=== PATIENT | male | born 1940 | race Caucasian/White ===

== ENCOUNTER 2020-08-23 07:24 | Outpatient (REF) | payer MEDICARE, OTHER, SELFPAY ==
[2020-08-23 07:56] LABS: MANUAL DIFF FLAG NO
[2020-08-23 07:57] LABS: Basophils Percent Auto 0.8 % (0-2); Eosinophils Absolute Auto 0.3 X10*3/uL (0.0-0.4); Eosinophils Percent Auto 5.2 % (0-4); Hematocrit 36.6 % (42-52); Imm Gran Abs Auto 0.01 X10*3/uL (0.00-0.03); Imm Gran Pct Auto 0.2 % (0.0-0.4); Lymphocytes Absolute Auto 1.4 X10*3/uL (1.2-4.9); Lymphocytes Percent Auto 27.6 % (20-40); Mean Corpuscular HGB Conc 32.8 g/dl (31.0-36.0); Mean Corpuscular Hemoglobin 33.1 pg (27.0-33.0); Mean Corpuscular Volume 101.1 fL (80-98); Mean Platelet Volume 9.9 fL (9.4-12.4); Monocytes Absolute Auto 0.6 X10*3/uL (0.1-1.2); Monocytes Percent Auto 11.3 % (2-11); Neutrophils Absolute Auto 2.7 X10*3/uL (2.0-8.3); Neutrophils Percent Auto 54.9 % (45-73); Platelet Count 163 X10*3/uL (160-400); Red Blood Count 3.62 X10*6/uL (4.60-5.80); Red Cell Distribution Width 12.9 % (11.0-16.0)
[2020-08-23 08:30] LABS: Alanine Aminotransferase 22 U/L (0-40); Albumin Level 4.2 g/dL (3.5-5.0); Alkaline Phosphatase 36 U/L (39-117); Anion Gap 7 (12-20); Aspartate Amino Transferase 35 U/L (5-37); Bilirubin Total 1.1 mg/dL (0.0-1.0); Blood Urea Nitrogen 20 mg/dL (9-16); Calcium 8.9 mg/dL (8.4-10.2); Carbon Dioxide 32 mmol/L (22-29); Chloride 108 mmol/L (96-108); Cholesterol 105 mg/dL; Estimated Glomerular Filt Rate > 60; Glucose Random 97 mg/dL (60-115); HDL Cholesterol 47 mg/dL; LDL Cholesterol Calculated 50 mg/dl; Potassium 4.2 mmol/l (3.3-5.1); Sodium 143 mmol/L (135-145); Total Protein 6.4 g/dL (6.5-8.0); Triglycerides 40 mg/dL
[2020-08-23 08:44] LABS: Thyroid Stimulating Hormone 2.52 mIU/mL (0.32-4.0)
== END 2020-08-23 07:25 | disposition home or self-care (01) ==
LOC: HO.LAB 07:24
PROVIDERS: PCP Internal Medicine; Visit Provider Internal Medicine
DX: D64.9 Anemia, unspecified (principal); E78.00 Pure hypercholesterolemia, unspecified; I77.9 Disorder of arteries and arterioles, unspecified
CPT/HCPCS: 36415; 80053; 80061; 84443; 85025

== ENCOUNTER 2020-12-14 08:46 | Outpatient (REF) | payer MEDICARE, OTHER, SELFPAY ==
--- NOTE | 2020-12-14 10:46 | MHC.AU.P13 ---
Adult Audiological Evaluation Date of Visit: 12/14/20 Certified Physician Assistant Used: Not Applicable Reason for Appointment: Audiologic evaluation due to question of hearing loss. Jorje reports he often misses part of what another person says. Has particular difficulty understanding someone's name when being introduced. Does patient feel they have a hearing loss?: Yes If Yes, Which Ear?: Both Ears When Was Hearing Difficulty First Noticed?: 2-3 years ago Has hearing been tested previously?: No Hearing Handicap Inventory: HHIE SCORE: 16 Based on HHIE score, patient has: Mild to moderate perceived hearing handicap Ear History: History of Ear Wax Buildup: Both Ears History of occupational noise exposure?: No History: History: No Medical History: Medical History: Blood Disorder Cancer Head Injury Medical History: Concussion from head trauma in 1954. Jorje has no memory of the accident and for a few years after, had difficulty concentrating. Allergies: Penicillin, Amoxicillin, Tetracycline, Erythromycin Medication List: Finastride, Roshrastatin, Asprin, Trazadone, Restasis Otoscopy: Right Ear: Collapsing Ear Canal Left Ear: Collapsing Ear Canal Tympanometry: Tympanometry performed due to: To assess integrity of the middle ear system Right Ear: Non-compliant Middle Ear System (Type B) Left Ear: Normal Middle Ear System (Type A) Otoacoustic Emissions Right Ear Results: Not performed at today's visit. Left Ear Results: Not performed at today's visit. Hearing Evaluation: Transducer(s) Used: Insert Earphones Bone Conduction Method: Conventional Audiometry Stimuli Used: Pure Tones Right Ear: Description of Hearing: Borderline normal hearing threshold at 250 and 500 Hz, dropping to a severe high frequency mixed hearing loss Left Ear: Description of Hearing: Borderline normal hearing threshold at 250 to 1000 Hz, dropping to a severe high frequency mixed hearing loss. The high frequency thresholds for the left ear are poorer compared to the right. Speech Recognition Threshold (SRT): Method Used: Monitored Live Voice Stimuli Used: Spondee Words Right Ear: 20 dB HL Left Ear: 20 dB HL Word Discrimination: Method: Recorded Lists Word Lists Used: NU-6 Right Ear: 100% at 70 dB HL Left Ear: 100% at 70 dB HL Most Comfortable Level (MCL): Right Ear: 70 dB HL Left Ear: 70 dB HL QuickSIN: Unaided Binaural Quick SIN Test: 3 dB SNR Loss suggesting Jorje experiences a mild degree of difficulty understanding speech with increasing levels of background noise. Comparison: Compared to the most recent evaluation: N/A Interpretation of Results: Question if the conductive components noted for both ears and the right ear middle ear dysfunction may be related to the significantly collapsing ear canals. Recommendations: Audiological re-evaluation in one year. Trial with amplification is recommended. Medical clearance from a physician is required before fitting. Referral to Ear, Nose, and Throat to address middle ear dysfunction. - Discussed and provided a handout regarding communication strategies to use to improve speech understanding as much as possible - Discussed trial period with binaural hearing aids and Jorje will consider. If he would like to try hearing aids from this office, he is advised to schedule a Hearing Aid Evaluation appointment prior to 06/13/2021. Audiologic re-evaluation is required if he wishes to pursue amplification after this date. Diagnosis: Primary Diagnosis: H90.6 Mixed Hearing Loss, Bilateral Secondary Diagnosis: H69.91 Unspecified Eustachian Tube Dysfunction, Right Ear Services Performed: Comprehensive Audiological Evaluation (CPT 10242) Tympanometry (CPT 39000) Signature: Provider: Kana Bell, CCC-A
== END 2020-12-14 08:47 | disposition home or self-care (01) ==
LOC: HO.SH 08:46
PROVIDERS: Visit Provider Registered Nurse
DX: H90.6 Mixed conductive and sensorineural hearing loss, bilateral (principal); H69.91 Unspecified Eustachian tube disorder, right ear
CPT/HCPCS: 92557; 92567

== ENCOUNTER 2021-10-02 08:34 | Outpatient (REF) | payer MEDICARE, OTHER, SELFPAY ==
[2021-10-02 08:53] LABS: MANUAL DIFF FLAG NO
[2021-10-02 09:03] LABS: Basophils Percent Auto 0.8 % (0-2); Eosinophils Absolute Auto 0.3 X10*3/uL (0.0-0.4); Eosinophils Percent Auto 5.2 % (0-4); Hematocrit 35.1 % (42.0-52.0); Hemoglobin 11.5 g/dl (14.0-18.0); Lymphocytes Absolute Auto 1.4 X10*3/uL (1.2-4.9); Lymphocytes Percent Auto 28.3 % (20-40); Mean Corpuscular HGB Conc 32.8 g/dl (31.0-36.0); Mean Corpuscular Volume 100.9 fL (80.0-98.0); Mean Platelet Volume 10.4 fL (9.4-12.4); Monocytes Absolute Auto 0.7 X10*3/uL (0.1-1.2); Monocytes Percent Auto 13.5 % (2-11); Neutrophils Absolute Auto 2.5 x10*3/uL (2.0-8.3); Neutrophils Percent Auto 52.2 % (45-73); Platelet Count 124 X10*3/uL (160-400); Red Blood Count 3.48 X10*6/uL (4.60-5.80); Red Cell Distribution Width 13.2 % (11.0-16.0); White Blood Count 4.8 X10*3/uL (4.8-10.8)
[2021-10-02 09:24] LABS: Alanine Aminotransferase 18 U/L (0-40); Albumin Level 4.2 g/dL (3.5-5.0); Alkaline Phosphatase 33 U/L (39-117); Anion Gap 10 (12-20); Aspartate Amino Transferase 27 U/L (5-37); Bilirubin Total 1.3 mg/dL (0.0-1.0); Blood Urea Nitrogen 23 mg/dL (9-16); Calcium 9.7 mg/dL (8.4-10.2); Carbon Dioxide 28 mmol/L (22-29); Chloride 107 mmol/L (96-108); Cholesterol 105 mg/dL; Estimated Glomerular Filt Rate > 60; Glucose Random 94 mg/dL (60-115); HDL Cholesterol 46 mg/dL; LDL Cholesterol Calculated 52 mg/dl; Potassium 4.3 mmol/L (3.3-5.1); Sodium 141 mmol/L (135-145); Total Protein 6.5 g/dL (6.5-8.0); Triglycerides 39 mg/dL
[2021-10-02 09:45] LABS: Free T4 (Free Thyroxine) 1.06 ng/dL (0.71-1.85); Thyroid Stimulating Hormone 2.27 uIU/mL (0.32-4.0)
== END 2021-10-02 08:35 | disposition home or self-care (01) ==
LOC: HO.LAB 08:34
PROVIDERS: PCP Internal Medicine; Visit Provider Internal Medicine
DX: E78.00 Pure hypercholesterolemia, unspecified (principal); R42 Dizziness and giddiness; D64.9 Anemia, unspecified
CPT/HCPCS: 36415; 80053; 80061; 84439; 84443; 85025

== ENCOUNTER 2022-11-30 16:51 | Outpatient (REF) | payer MEDICARE, OTHER, SELFPAY ==
--- NOTE | ~2022-11-30 | XR_ITS ---
EXAMINATION: XR FOOT, RIGHT CLINICAL INFORMATION: Foot pain COMPARISON: None TECHNIQUE: AP, lateral, and oblique views of the right foot. FINDINGS: No acute fracture or dislocation. Moderate first MTP joint space narrowing with subchondral sclerosis and osteophyte formation consistent with osteoarthritis. Joint spaces otherwise maintained throughout the foot. Normal alignment at the Lisfranc joint. No ankle joint effusion. XR/XR foot RT 2V IMPRESSION: 1. No acute osseous injury. 2. Moderate first MTP joint osteoarthritis.
== END 2022-11-30 16:52 | disposition home or self-care (01) ==
LOC: HO.HMGCX 16:51
PROVIDERS: PCP Internal Medicine; Visit Provider Nurse Practitioner Family
DX: M79.671 Pain in right foot (principal); S90.121D Contusion of right lesser toe(s) without damage to nail, subsequent encounter
CPT/HCPCS: 73620

== ENCOUNTER 2024-03-04 06:08 | Outpatient (REF) | payer MEDICARE, OTHER, SELFPAY ==
--- NOTE | ~2024-03-04 | XR_ITS ---
EXAMINATION: XR SHOULDER, RIGHT CLINICAL INFORMATION: Acute right shoulder pain COMPARISON: None available. TECHNIQUE: Three views of the right shoulder. FINDINGS: Mild glenohumeral and acromioclavicular osteoarthritis. Small subacromial spur. No fracture or malalignment. XR/XR shoulder RT min 2V IMPRESSION: Mild glenohumeral and acromioclavicular osteoarthritis. Small subacromial spur.
[2024-03-04 06:33] LABS: MANUAL DIFF FLAG NO
[2024-03-04 07:59] LABS: Basophils Absolute Auto 0.1 X10*3/uL (0.0-0.2); Eosinophils Absolute Auto 0.3 X10*3/uL (0.0-0.4); Eosinophils Percent Auto 4.9 % (0-4); Hematocrit 32.2 % (42.0-52.0); Hemoglobin 10.8 g/dl (14.0-18.0); Imm Gran Abs Auto 0.01 X10*3/uL (0.00-0.03); Imm Gran Pct Auto 0.2 % (0.0-0.4); Lymphocytes Absolute Auto 1.4 X10*3/uL (1.2-4.9); Lymphocytes Percent Auto 28.3 % (20-40); Mean Corpuscular HGB Conc 33.5 g/dl (31.0-36.0); Mean Corpuscular Hemoglobin 34.3 pg (27.0-33.0); Mean Corpuscular Volume 102.2 fL (80.0-98.0); Mean Platelet Volume 10.7 fL (9.4-12.4); Monocytes Absolute Auto 0.7 X10*3/uL (0.1-1.2); Monocytes Percent Auto 13.6 % (2-11); Neutrophils Absolute Auto 2.6 x10*3/uL (2.0-8.3); Platelet Count 162 X10*3/uL (160-400); Red Blood Count 3.15 X10*6/uL (4.60-5.80); Red Cell Distribution Width 13.7 % (11.0-16.0); White Blood Count 5.1 X10*3/uL (4.8-10.8)
[2024-03-04 08:04] LABS: Estimated Average Glucose 108 mg/dL; Hemoglobin A1c % 5.4 % (<6.0)
[2024-03-04 08:48] LABS: Alanine Aminotransferase 20 U/L (0-40); Albumin Level 4.1 g/dL (3.5-5.0); Alkaline Phosphatase 35 U/L (39-117); Anion Gap 12 (12-20); Aspartate Amino Transferase 32 U/L (5-37); Bilirubin Total 0.9 mg/dL (0.0-1.0); Blood Urea Nitrogen 28 mg/dL (9-16); Calcium 9.5 mg/dL (8.4-10.2); Carbon Dioxide 28 mmol/L (22-29); Chloride 108 mmol/L (96-108); Cholesterol 102 mg/dL (<200); Estimated Glomerular Filt Rate > 60; Glucose Random 90 mg/dL (60-115); HDL Cholesterol 47 mg/dL (>40); LDL Cholesterol Calculated 48 mg/dL (<100); Potassium 4.2 mmol/L (3.3-5.1); Sodium 144 mmol/L (135-145); Total Protein 6.7 g/dL (6.5-8.0); Triglycerides 38 mg/dL (<150)
[2024-03-04 09:06] LABS: Thyroid Stimulating Hormone 2.56 uIU/mL (0.32-4.0)
[2024-03-04 09:07] LABS: Vitamin B12 438 pg/mL (200-900)
== END 2024-03-04 06:09 | disposition home or self-care (01) ==
LOC: HO.XRAY 06:08
PROVIDERS: PCP Internal Medicine; Visit Provider Internal Medicine
DX: I10 Essential (primary) hypertension (principal); E53.8 Deficiency of other specified B group vitamins; R73.01 Impaired fasting glucose; E55.9 Vitamin D deficiency, unspecified; M25.511 Pain in right shoulder; W19.XXXA Unspecified fall, initial encounter
CPT/HCPCS: 36415; 73030; 80053; 80061; 82306; 82607; 83036; 84443; 85025

== ENCOUNTER 2024-04-23 19:38 | Emergency (ER) | payer MEDICARE, OTHER, SELFPAY ==
--- NOTE | ~2024-04-23 | CT_ITS ---
EXAMINATION: CT FEMUR WITH CONTRAST, RIGHT CLINICAL INFORMATION: Right femur trauma. Bruise to the right anterior thigh. COMPARISON: None available. TECHNIQUE: Multidetector volumetric CT imaging was obtained through the right femur, following intravenous administration of 85 mL Omnipaque 350. Postprocessing was performed at a dedicated workstation. Multiplanar reformatted images were submitted. This CT examination was performed using dose optimization techniques as appropriate, variously including the following: *Automated exposure control *Adjustment of mA and/or kV according to patient size (this includes techniques or standardized protocols for targeted exams where dose is matched to indication/reason for exam; i.e. extremities or head) *Use of iterative reconstruction technique DLP: 367 mGy-cm FINDINGS: Bilateral total hip arthroplasty hardware is in place. There are 2 acetabular fixation screws on the right. Significant metallic streaking artifact from the surgical hardware limits the evaluation of the surrounding structures. Findings suggestive of elongated hematoma is noted over the [id number] thigh anteriorly in the deep subcutaneous tissue, measuring approximately 17.5 cm in length and 2.3 cm seen maximum AP dimension approximately 7 cm in transverse dimension. Small hyperdense focus is noted within the hematoma in the lower thigh (series 5 image 118). There are faint patchy amorphous and somewhat curvilinear areas of hyperdensities within the anterior musculature in the mid thigh (series 5 images 84 through 98 of 174). Subcutaneous fat reticulation is noted anterolaterally in the mid and distal thigh. There is no evidence of underlying acute osseous fracture. No evidence of abnormal periprosthetic lucency to suggest loosening. Hip joint and knee joints are intact. Heterotopic ossification is noted in the region of femoral neck and superior region of femoral neck. Symphysis pubis is intact. Scattered calcific atherosclerosis of the femoral and popliteal arteries. There is normal enhancement of the femoral and popliteal arteries. Trace suprapatellar joint effusion. No soft tissue air or unexpected radiopaque foreign body. CT/CT femur RT w IV con IMPRESSION: Large hematoma in the subcutaneous tissue of the [id number]-rw-[id number] thigh anteriorly. No evidence of underlying acute osseous fracture. Evaluation of the [id number] femur is somewhat limited due to presence of significant metallic streaking artifacts from the total hip arthroplasty hardware. No evidence of hardware loosening. Areas of hyperdensities in the hematoma as well as in the anterior musculature as detailed above are nonspecific, possibility of contrast extravasation in the anterior musculature cannot be completely excluded. No evidence of focal abscess collection.
--- NOTE | 2024-04-23 19:41 | ED_ITS ---
HPI - General Adult General Chief complaint: Fall Stated complaint: fall today @1500 Time Seen by Provider: 04/23/24 19:41 History of Present Illness ED Provider: Cheko RANDALL narrative: The patient is an 83-year-old male who is generally functional and in reasonably good health. He lives at home with his . Today he was at a golf course. After playing around of golf he tripped going up a set of stairs and landed on his hands and his legs. He struck the distal aspect of his anterior right thigh quite high hard against a riser of this stair case. He sustained a slight skin tear and had some pain initially. Nevertheless he was able to get someone to help him into his car. He then drove 4 miles home. He was able to get out of his car when he got home but it was difficult. The injury occurred at 3:30 PM this afternoon. By 7 PM he had developed significant bruising and had a great deal of difficulty moving around because of pain in the leg when he moved. At that point he and his decided he should come to the hospital. They called an ambulance and he was brought here. Says he does not have significant pain at rest. However movement of the leg, particularly when he tries to bear weight on the leg is severe. The patient did not hit his head or injure his neck. He did not hit his chest or abdomen. Other than the pain in his right thigh he has not complaining of any other injury or symptom. The patient is on a baby aspirin daily. He is not on any anticoagulation. The patient has a history of bilateral hip replacements. This was done more than 10 years ago Related Data Home Medications ?Medication ?Instructions ?Recorded ?Confirmed celecoxib 200 mg capsule mg PO BID 11/30/22 11/30/22 cyclosporine 0.05 % eye drops in a drp ophthalmic (eye) 11/30/22 11/30/22 dropperette (Restasis) finasteride 5 mg tablet 5 mg PO DAILY 11/30/22 11/30/22 metoprolol tartrate 25 mg tablet 12.5 mg PO BID 11/30/22 11/30/22 rosuvastatin 10 mg tablet 10 mg PO DAILY 11/30/22 11/30/22 trazodone 50 mg tablet 50 mg PO BEDTIME 11/30/22 11/30/22 Allergies Allergy/AdvReac Type Severity Reaction Status Date / Time erythromycin base Allergy Unknown HIVES Unverified 04/23/24 19:48 [From ERYTHROCIN] penicillin G Allergy Unknown Rash Verified 11/30/22 16:28 penicillin V Allergy Unknown hives Verified 04/23/24 19:48 Penicillins [PENICILLINS] Allergy Unknown RASH HIVES Unverified 04/23/24 19:48 tetracycline [TETRACYCLINE] Allergy Unknown HIVES Unverified 04/23/24 19:48 Erythromycin Allergy Unknown hives Uncoded 04/23/24 19:48 Review of Systems 2 Review of Systems: Yes all other systems are reviewed and are negative [facility] Social History Social History Smoked in Last 30 Days: No Advance Directives: No Advance Directives Information Provided: No Do you have a plan to hurt others: No Plan Physical Exam ED Vital Signs: Vital Signs - 24 hr 04/23/24 19:52 04/23/24 20:17 04/23/24 22:07 Temperature 97.9 F 97.9 F 98.2 F Pulse Rate 65 61 63 Respiratory Rate 16 15 16 Blood Pressure 144/45 H 153/54 H 144/62 H Pulse Oximetry 100 97 97 Oxygen Delivery Method Room Air Room Air Room Air 04/24/24 00:14 04/24/24 02:25 Temperature 98.2 F Pulse Rate 65 61 Respiratory Rate 17 16 Blood Pressure 160/53 H Pulse Oximetry 97 Oxygen Delivery Method Room Air BMI result Body Mass Index 24.2 Const Other: The patient is an 83-year-old man who was awake and alert. He does not appear obviously acutely uncomfortable or in obvious acute distress. HENMT Other: No signs of trauma to the head or the face. Face is symmetrical. Mucous membranes moist. Eyes Other: Pupils are round equal, conjunctivae are clear, extraocular movements intact Neck Other: No neck tenderness. Moving his neck easily. No JVD. Resp Effort & Inspection: normal respiratory effort Auscultation: clear to auscultation bilaterally Cardio Rate: regular rate Rhythm: regular rhythm Heart sounds: S1 normal heart sound present and S2 normal heart sound present GI Other: Abdomen is soft and nontender Skin Other: There is soft tissue swelling to the lower anterior thigh. There is a skin tear about 4 cm in length overlying the area of swelling. The swelling is tender but not fluctuant. Neuro Other: The patient is awake and alert, oriented and appropriate. Cranial nerves are grossly intact. He moves his arms normally. Moves his left leg normally. He has reduced use of his right leg because of pain at the thigh. He has intact sensation on both sides of the right thigh, both sides of the right lower leg, and of the right foot. He seems to be neurologically intact. Extrem Other: The patient has significant soft tissue swelling and bruising to the distal right anterior thigh. This is associated with a small skin tear. Patient is able to keep the leg extended at the knee although it is painful. Patient has a lot of tenderness in the region of the soft tissue swelling but the proximal thigh does not have significant tenderness. There is some pitting edema to both lower legs. This is more pronounced on the right lower leg than the left. Patient and his both agree that this is chronic. Medications Administered Discontinued Medications Generic Name Dose Route Start Last Admin Trade Name Freq PRN Reason Stop Dose Admin Acetaminophen 975 mg 04/23/24 22:50 04/23/24 23:19 Acetaminophen 325 Mg Tablet PO 04/23/24 22:51 975 mg ONCE ONE Administration Iohexol 85 ml 04/23/24 20:44 04/23/24 20:45 Iohexol 350 Mg/Ml 100 Ml Infus..Btl IV 04/23/24 20:45 85 ml ONCE ONE Administration Lidocaine HCl 10 ml 04/24/24 00:08 04/24/24 00:17 Lidocaine Hcl 2 % Urojet 10 Ml Jel.Pf.Vern TOPICAL 04/24/24 00:09 Not Given ONCE ONE Medical Decision Making Medical Decision Making [facility] Narrative: The patient is an 83-year-old man who is generally in fairly good health. He takes a baby aspirin daily. No anticoagulant medications. He sustained an injury to his right distal anterior thigh when he tripped going up a set of stairs. I believe he struck the lower anterior thigh against the edge of a step. This occurred approximately 4 hours prior to arrival. He was able to drive himself home immediately after the accident what had that ultimately he came here by ambulance. He does not seem to have sustained any other significant injuries fall. He has a small skin tear to the skin of the distal anterior thigh. The patient's description of the episode did not seem suggestive of a likely fracture. He seemed to have developed a significant hematoma of the lower anterior thigh. Labs were done that showed a hemoglobin of 9.2. This was a drop from 10.8 on March 04, approximately 1.5 months ago. Additionally an initial CPK was elevated at 513. Labs were repeated 3 hours later. The patient's repeat hemoglobin was stable at 9.5. Repeat CPK was 472. A CT of the femur with IV contrast was done. This shows a large hematoma in the subcutaneous tissue of the mid to distal thigh anteriorly that was described as being 17.5 cm in length, 7 cm across, and 2.3 cm in depth. Areas of hyperdensities were seen in the hematoma as well as in the anterior musculature which were described as being ?nonspecific, possibility of contrast extravasation in the anterior musculature can not be completely excluded. ? I spoke with the radiologist who read the study. It was my impression that study did not highly suggest that there was any role for any kind of possible interventional radiology procedure. Clinically, although the patient obviously had a very large hematoma, my suspicion for an ongoing acute problem is not high. Patient does not seem to be having any pain except with movement or manipulation of the leg. He seems comfortable at rest and able to sleep. I think this would argue against both a compartment syndrome and also against ongoing bleeding of any significance. The patient was treated with elevation of the leg and application of a large ice bag over his thigh. He has been observed for many hours. During this time he had labs that showed no drop in his hemoglobin and no rise in his CPK. Additionally he did not seem to be exhibiting any significant new discomfort and in fact seemed to be sleeping most of the time. My impression therefore is that he has a significant hematoma but I do not think he has a compartment syndrome or significant ongoing bleeding in a muscular compartment. I therefore do not think there is a clear indication for hospitalization Since the patient is having a great deal of difficulty moving his leg I think he can not be discharged. Placed in physician observation for evaluation by physical therapy and case management. Lab Data 04/23/24 23:23 04/23/24 20:08 Labs: Lab Results 04/23/24 04/23/24 Range/Units 20:08 23:23 WBC 7.4 9.0 (4.8-10.8) X10*3/uL RBC 2.63 L 2.73 L (4.60-5.80) X10*6/uL Hgb 9.2 L 9.5 L (14.0-18.0) g/dl Hct 26.2 L 27.1 L (42.0-52.0) % MCV 99.6 H 99.3 H (80.0-98.0) fL MCH 35.0 H 34.8 H (27.0-33.0) pg MCHC 35.1 35.1 (31.0-36.0) g/dl RDW 13.6 13.6 (11.0-16.0) % Plt Count 130 L 132 L (160-400) X10*3/uL MPV 10.0 10.5 (9.4-12.4) fL Immature Gran % (Auto) 0.4 (0.0-0.4) % Neut % (Auto) 77.3 H (45-73) % Lymph % (Auto) 12.9 L (20-40) % Dade % (Auto) 7.8 (2-11) % Eos % (Auto) 1.2 (0-4) % Baso % (Auto) 0.4 (0-2) % Lymph # (Auto) 1.0 L (1.2-4.9) X10*3/uL Dade # (Auto) 0.6 (0.1-1.2) X10*3/uL Eos # (Auto) 0.1 (0.0-0.4) X10*3/uL Baso # (Auto) 0.0 (0.0-0.2) X10*3/uL Abs Immat Gran (auto) 0.03 (0.00-0.03) X10*3/uL Absolute Neuts (auto) 5.7 (2.0-8.3) x10*3/uL Absolute Nucleated RBC 0.000 0.000 (0.0-0.012) X10*3/uL Nucleated RBC % (auto) 0.0 0.0 (0.0-0.2) /100WBC Sodium 140 (135-145) mmol/L Potassium 3.9 (3.3-5.1) mmol/L Chloride 107 (96-108) mmol/L Carbon Dioxide 25 (22-29) mmol/L Anion Gap 12 (12-20) BUN 30 H (9-16) mg/dL Creatinine 1.01 (0.5-1.4) mg/dL Estim Creat Clear Calc 56.2 Estimated GFR > 60 Random Glucose 126 H (60-115) mg/dL Calcium 9.5 (8.4-10.2) mg/dL Magnesium 2.1 (1.6-2.6) mg/dL Total Bilirubin 0.9 (0.0-1.0) mg/dL Direct Bilirubin 0.4 (0.0-0.5) mg/dL AST 35 (5-37) U/L ALT 20 (0-40) U/L Alkaline Phosphatase 34 L (39-117) U/L Total Creatine Kinase 513 H 472 H (38-174) U/L Total Protein 6.2 L (6.5-8.0) g/dL Albumin 4.0 (3.5-5.0) g/dL Ethyl Alcohol < 10 mg/dL Blood Type A Positive Antibody Screen NEGATIVE Discharge Plan Discharge Clinical Impression: Traumatic hematoma of right thigh Patient Disposition: Still a Patient Prescriptions: No Action celecoxib 200 mg capsule PO BID rosuvastatin 10 mg tablet 10 mg PO DAILY cyclosporine [Restasis] 0.05 % dropperette ophthalmic (eye) finasteride 5 mg tablet 5 mg PO DAILY metoprolol tartrate 25 mg tablet 12.5 mg PO BID trazodone 50 mg tablet 50 mg PO BEDTIME Print Language: [place]
[2024-04-23 19:45] VITALS: BP 150/70; PULSE 60; O2SAT 99; BMI 24.2
[2024-04-23 19:52] VITALS: BP 144/45; PULSE 65; RESP 16; TEMP 36.6; O2SAT 100
--- NOTE | 2024-04-23 20:01 | ECG_ITS ---
Test Reason : FALL Blood Pressure : / mmHG Vent. Rate : 063 BPM Atrial Rate : 063 BPM P-R Int : 168 ms QRS Dur : 076 ms QT Int : 390 ms P-R-T Axes : 088 -20 065 degrees QTc Int : 399 ms Normal sinus rhythm Normal ECG When compared with ECG of 05-OCT-2005 14:48, No significant change was found Referred By: Romero Still Electronically Signed By:CHAD LA
[2024-04-23 20:12] LABS: MANUAL DIFF FLAG NO
[2024-04-23 20:13] LABS: Basophils Percent Auto 0.4 % (0-2); Eosinophils Absolute Auto 0.1 X10*3/uL (0.0-0.4); Eosinophils Percent Auto 1.2 % (0-4); Hematocrit 26.2 % (42.0-52.0); Hemoglobin 9.2 g/dl (14.0-18.0); Imm Gran Abs Auto 0.03 X10*3/uL (0.00-0.03); Imm Gran Pct Auto 0.4 % (0.0-0.4); Lymphocytes Percent Auto 12.9 % (20-40); Mean Corpuscular HGB Conc 35.1 g/dl (31.0-36.0); Mean Corpuscular Volume 99.6 fL (80.0-98.0); Monocytes Absolute Auto 0.6 X10*3/uL (0.1-1.2); Monocytes Percent Auto 7.8 % (2-11); Neutrophils Absolute Auto 5.7 x10*3/uL (2.0-8.3); Neutrophils Percent Auto 77.3 % (45-73); Platelet Count 130 X10*3/uL (160-400); Red Blood Count 2.63 X10*6/uL (4.60-5.80); Red Cell Distribution Width 13.6 % (11.0-16.0); White Blood Count 7.4 X10*3/uL (4.8-10.8)
[2024-04-23 20:17] VITALS: BP 153/54; PULSE 61; RESP 15; TEMP 36.6; O2SAT 97
[2024-04-23 20:33] LABS: Alanine Aminotransferase 20 U/L (0-40); Alkaline Phosphatase 34 U/L (39-117); Anion Gap 12 (12-20); Aspartate Amino Transferase 35 U/L (5-37); Bilirubin Direct 0.4 mg/dL (0.0-0.5); Bilirubin Total 0.9 mg/dL (0.0-1.0); Blood Urea Nitrogen 30 mg/dL (9-16); Calcium 9.5 mg/dL (8.4-10.2); Carbon Dioxide 25 mmol/L (22-29); Chloride 107 mmol/L (96-108); Creatinine Clr Calc Pharmacy 56.2; Estimated Glomerular Filt Rate > 60; Ethanol < 10 mg/dL; Glucose Random 126 mg/dL (60-115); Magnesium 2.1 mg/dL (1.6-2.6); Potassium 3.9 mmol/L (3.3-5.1); Sodium 140 mmol/L (135-145); Total Protein 6.2 g/dL (6.5-8.0)
[2024-04-23] MEDS: iohexoL 350 MG/ML 100 ML INFUS..BTL 85 ML IV (20:45)
--- NOTE | 2024-04-23 21:22 | PC.NURSE ---
pt rates pain at 8-10 however does not want pain medication at this time when asked
[2024-04-23 22:07] VITALS: BP 144/62; PULSE 63; RESP 16; TEMP 36.8; O2SAT 97
[2024-04-23] MEDS: Acetaminophen 325 MG TABLET 975 MG PO (23:19)
[2024-04-23 23:29] LABS: Hematocrit 27.1 % (42.0-52.0); Hemoglobin 9.5 g/dl (14.0-18.0); Mean Corpuscular HGB Conc 35.1 g/dl (31.0-36.0); Mean Corpuscular Hemoglobin 34.8 pg (27.0-33.0); Mean Corpuscular Volume 99.3 fL (80.0-98.0); Mean Platelet Volume 10.5 fL (9.4-12.4); Platelet Count 132 X10*3/uL (160-400); Red Blood Count 2.73 X10*6/uL (4.60-5.80); Red Cell Distribution Width 13.6 % (11.0-16.0)
--- NOTE | 2024-04-24 00:12 | PC.NURSE ---
pt output 600ml via urinal. Bladder scan revealed over 500ml.
[2024-04-24 00:14] VITALS: BP 160/53; PULSE 65; RESP 17; TEMP 36.8; O2SAT 97
--- NOTE | 2024-04-24 00:16 | PC.NURSE ---
due to pt voided naturally, provider stated that he does not need a ulloa at this time
--- NOTE | 2024-04-24 00:35 | MHC.EDTECH ---
This tech took over care of patient at 2340,hourly rounds and vitals completed,patient was changed into hospital attire,belongings list completed, took home every thing except eye glasses with case there at bedside,patient is resting comfortably call chaidez in reach
[2024-04-24 02:25] VITALS: PULSE 61; RESP 16
--- NOTE | 2024-04-24 02:45 | MHC.EDTECH ---
Patient urinated 300MLS of clear yellow urine in urinal,patient is resting comfortably,pillows placed under leg fro comfort,call chaidez in reach
--- NOTE | 2024-04-24 03:07 | PC.NURSE ---
med rec complete from provider form
[2024-04-24 04:00] VITALS: BP 150/61; PULSE 59; RESP 18; TEMP 36.9; O2SAT 97
[2024-04-24] MEDS: Lidocaine HCl 1 % MPF 5 ML VIAL INFILTRATI (04:16)
--- NOTE | 2024-04-24 04:23 | MHC.EDTECH ---
Ambulated pt per providers request,patient was steady needed a 2 assist due to pain,pt refused pain meds,RN at bedside with this tech
[2024-04-24] MEDS: Acetaminophen 325 MG TABLET 650 MG PO (06:22)
[2024-04-24 07:37] VITALS: BP 150/61; PULSE 59; O2SAT 97
[2024-04-24] MEDS: Finasteride 5 MG TABLET PO (09:23)
[2024-04-24] MEDS: Metoprolol Tartrate 12.5 MG HALFTAB PO (09:24)
[2024-04-24] MEDS: Atorvastatin Calcium 40 MG TABLET PO (09:24)
[2024-04-24] MEDS: Aspirin Enteric Coated 81 MG TABLET.DR PO (09:24)
[2024-04-24 10:09] LABS: COVID-19 Test Negative (Negative); IDNOW Serial# 152EDE1D
--- NOTE | 2024-04-24 12:06 | MHC.CM.ED ---
Received case management consult from Dr Still. Patient came to the ER due to a fall. Physical therapy eval completed. Rehab is recommended. Met with patient and , Fabiana, in regards to discharge planning. Patient lives with Fabiana, ambulates independently and had no services prior to coming to the ER. PCP verified. Copy of HCP obtained from PCP's office. Patient has not been inpatient in any facility in the past 30 days. Referral made to all 3 acute rehab facilities. [facility] is able to offer a bed. Patient accepts. [facility] MAYS booked for 3pm. Med [facility] with chart. Patient, Graham Jung RN and Maliha LOBATO aware. Continue to monitor for d/c needs.
[2024-04-24 13:57] VITALS: BP 146/51; PULSE 54; RESP 16; O2SAT 100
== END 2024-04-24 14:20 ==
PROVIDERS: Physician Assistant Medical; Emergency Provider Emergency Medicine; PCP Internal Medicine
DX: S70.11XA Contusion of right thigh, initial encounter (principal); R26.2 Difficulty in walking, not elsewhere classified; M79.604 Pain in right leg; W01.10XA Fall on same level from slipping, tripping and stumbling with subsequent striking against unspecified object, initial encounter; Y93.53 Activity, golf; Y92.89 Other specified places as the place of occurrence of the external cause; Y99.8 Other external cause status; Z11.52 Encounter for screening for COVID-19; Z79.899 Other long term (current) drug therapy; Z51.81 Encounter for therapeutic drug level monitoring
CPT/HCPCS: 36415; 73701; 80048; 80076; 80307; 82550; 83735; 85025; 85027; 86850; 86900; 86901; 87635; 93005; 97162; 99285; Q9967

== ENCOUNTER → 2024-04-23 20:01 | Outpatient (BNV) | payer MEDICARE, OTHER, SELFPAY | PROVIDERS: Emergency Provider Emergency Medicine; PCP Internal Medicine; Visit Provider Internal Medicine | DX: R55 Syncope and collapse (principal) | CPT/HCPCS: 93010 ==

== ENCOUNTER 2025-07-06 07:51 | Outpatient (REF) | payer MEDICARE, OTHER, SELFPAY ==
--- NOTE | ~2025-07-06 | MR_ITS ---
EXAMINATION: MR BRAIN WITHOUT CONTRAST CLINICAL INFORMATION: Repeated falls, ataxia, dizziness; 84-year-old male. COMPARISON: None available. TECHNIQUE: MRI of the brain was obtained using routine sequences without contrast. Examination performed on 1.5 Lety Siemens high-field unit. FINDINGS: There is no diffusion restriction. There is no intracranial hemorrhage, acute infarction, mass effect, or edema. Ventricles, sulci, and cisterns are mildly diffusely prominent, in keeping with age-related cerebral and cerebellar volume loss. No shift of midline. No abnormal hemosiderin deposition is identified. There are mild to moderate scattered punctate and mildly confluent foci of white matter T2 hyperintensity in the periventricular, subcortical, and hemispheric deep white matter. These foci are nonspecific but statistically most likely relate to small vessel ischemic changes. Midline structures appear normally formed. There is diffuse thinning of the corpus callosum. The pituitary gland appears normal. Posterior fossa structures appear normal. Cerebellar tonsils are appropriately located. Major flow voids are preserved within the skull base. The globes and orbital contents demonstrate no abnormalities. There are bilateral lens replacements. Paranasal sinuses are clear bilaterally. The mastoids and tympanic cavities are normally aerated. Extracranial soft tissues demonstrate no abnormalities. No suspicious bone marrow changes are evident. Atlantoaxial joint demonstrates moderate degenerative changes with mild to moderate posterior pannus formation. There is hardware in C3. MR/MR head/brain wo con IMPRESSION: 1. No evidence of intracranial hemorrhage, acute infarction, mass effect, or edema. 2. Age-related cerebral and cerebellar volume loss, and mild to moderate changes of small vessel ischemia. Electronically signed by: Immanuel Chavez MD 07/06/2025 09:00 AM EDT
--- OUTSIDE RECORDS SUMMARY | 2025-07-06 07:56 | XMS_ITS | Encounter Summary ---
Author Organization [facility] Address [address] [facility] [address] [place] [address] Phone Care Team Providers Care Aircraft Pneudraulic Systems Mechanic Name Role Phone Abran Lacey MD Unavailable [phone] Edgardo Salmeron MD Unavailable [phone] Abran Lacey MD Primary Care Provider [phone] Raymundo Mtz MD Unavailable [phone] Encounter Details Date Type Department Care Team (Late st Contact Info) Description 06/23/2025 Telephone [facility] Internal Medicine [address] [place], [place] [phone] Abran Lacey MD [address] [place], [place] [id number] [email or web address] Social History Tobacco Use Types Packs/Day Years Used Date Smoking Tobacco: Former Cigarettes 1.5 45 1 215 - 2000 Smokeless Tobacco: Never Alcohol Use Standard Drinks/Week Comments Yes 1 (1 standard drink = 0.6 oz pur e alcohol) wine or liquor Education Answer Date Recorded Are you interested in more education? Not on valerie e 02/15/2023 Are you concerned about learning? Not on file 02/15/2023 No 02/15/2023 No 02/15/2023 Digital Access Answer Date Recorded No 03/13/2023 No 03/13/2023 Reliable internet access at home? Not on file 03/13/2023 Device with a working camera? Not on file Intimate Partner Violence Answer Date R ecorded Denied Basic Needs Not on file 02/25/2025 In the past 12 months have y ou been in a relationship with a person who hurts, threatens, or tries to control you? No 02/25/2025 Worried food would run out Not on file 02/25 In the past 12 months have y ou been in a relationship with a person who hurts, threatens, or tries to control you? No 02/25/2025 Sex and Gender Information Value Date Recorded Sex Assigned at Male 03/01/2022 10:33 PM EDT Legal Sex Male 7:03 PM EST Gender Identity Male 03/01/2022 10:33 PM EDT Sexual Orientation Straight 03/01/2022 10 :33 PM EDT documented as of this encounter Plan of Treatment Upcoming Encounters Date Type Department Care Team (Late st Contact Info) Description 08/30/2025 9:00 AM EST Office Visit [facility] Internal Medicine [address] [place] [address] Abran Lacey MD [address] [place] [address] [email or web address] 09/08/2025 11:30 AM EST Office Visit [facility] Internal Medicine [address] [place] [address] Abrna Lacey MD [address] [place] [address] documented as of this encounter Visit Diagnoses Not on filedocumented in this encounter Additional Health Concerns Assessment Noted Time PHQ-2 Depression Total Score: 0 02/26/20 25 8:05 AM EDT documented as of this encounter Care Teams Aircraft Pneudraulic Systems Mechanic Relationship Specialty Start Date End Date Abran Lacey MD [address] [place] [address] [email or web address] PCP - General Internal Medicine 06/30/20 Abran Lacey MD [address] [place] [address] [email or web address] Insurance Assigned Provider 01/25/24 Edgardo Salmeron MD [address] [place] [email or web address] 10/29/19 Raymundo Mtz MD [address] [place] [address] [email or web address] Surgery 08/29/20 documented as of this encounter Additional Source Comments The information contained in this document represents components of the legal health record. It is not the complete legal health record.[facility]
--- OUTSIDE RECORDS SUMMARY | 2025-07-06 07:56 | XMS_ITS | Patient Health Record ---
Author Organization [facility] [place] Address [address] [place] [address] Care Team Providers Care Metalizer Name Role Phone Abran Lacey MD Primary Care Provider Beck Seth Unavailable [phone] Allergies Allergen (clinical drug ingredient) Drug/Non Drug Allergy documented on EMR Reaction Allergy Type Onset Date Status Penicillin rash,hives Drug Allergy Activ e Reason For Referral No Information Medications Medication SIG (Take, Route, Fr equency, Duration) Notes Start Date End Date Status Promethazine HCl Not -Taking Finasteride 5 MG 1 tablet Orally Once a day Active Problems Problem Type SNOMED Code ICD Code Onset Dates Problem Status W/U Status Risk Notes Problem Disorder of joint of ankle and/or foot (567579329) Arthritis - Degenerative (719.97) Active confirmed Problem Acquired deformity of joint of big toe (disorder) (461178642) 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 [address] [place] [address] [id number] Jorje Espinoza Self - patient is the insured [employer] ([employer]) [address] [place] [address] [id number] Jorje Espinoza Self - patient is the insured Medical (General) History Medical History History ICD Code Arthritis Measles Mumps Chicken pox Joint implants/screws Surgical History Surgery Date(Month/Year) 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
--- OUTSIDE RECORDS SUMMARY | 2025-07-06 07:56 | XMS_ITS | Encounter Summary ---
Author Organization [facility] Address [address] [facility] [address] [place] [address] Phone Care Team Providers Care Weatherization Director Name Role Phone Abran Lacey MD Unavailable [phone] Edgardo Salmeron MD Unavailable [phone] Abran Lacey MD Primary Care Provider [phone] Raymundo Mtz MD Unavailable [phone] Encounter Details Date Type Department Care Team (Late st Contact Info) Description 06/23/2025 Telephone [email or web address] Internal Medicine [address] [place], [place] [phone] Abran Lacey MD [address] [place], [place] [phone] [email or web address] Social History Tobacco Use Types Packs/Day Years [...] PM EDT documented as of this encounter Progress Notes * Boaz Avalos - 06/24/2025 8:35 AM EDT Faxed MRI order to [facility] scheduling at [phone] with notation no authorization needed, confirmation receipt received. * Boaz Avalos - 06/23/2025 4:09 PM EDT MRI brain ordered to be done at [facility]. To authorization dept to see if PA needed then to fax to [facility] for scheduling. documented in this encounter Plan of Treatment Upcoming Encounters Date Type Department Care Team (Late st Contact Info) Description 08/30/2025 9:00 AM EST Office Visit [facility] Internal Medicine [address] [place] [address] Abran Lacey MD [address] [place] [address] [email or web address] 09/08/2025 11:30 AM EST Office Visit [facility] Internal Medicine [address] [place] [address] Abran Lacey MD [address] [place] [address] [email or web address] documented as of this encounter Visit Diagnoses Not on filedocumented in this encounter Additional Health Concerns Assessment Noted Time PHQ-2 Depression Total Score: 0 02/26/20 25 8:05 AM EDT documented as of this encounter Care Teams Weatherization Director Relationship Specialty Start Date End Date Abran Lacey MD [address] [place] [address] [email or web address] PCP - General Internal Medicine 06/30/20 Abran Lacey MD [address] [place] [address] [email or web address] Insurance Assigned Provider 01/25/24 Edgardo Salmeron MD [address] [place] [address] [email or web address] 10/29/19 Raymundo Mtz MD [address] [place] [address] [email or web address] Vascular Surgery 08/29/20 documented as of this encounter Additional Source Comments The information contained in this document represents components of the legal health record. It is not the complete legal health record.[facility]
--- OUTSIDE RECORDS SUMMARY | 2025-07-06 07:56 | XMS_ITS | Encounter Summary ---
Author Organization [facility] Address [address] [facility] [address] [place] [address] Phone Care Team Providers Care Head Of Ethics And Compliance Name Role Phone Abran Lacey MD Unavailable [phone] Edgardo Salmeron MD Unavailable [phone] Abran Lacey MD Primary Care Provider [phone] Raymundo Mtz MD Unavailable [phone] Reason for Visit * Reason Comments Medication Refill Encounter Details Date Type Department Care Team (Late st Contact Info) Description 07/02/2025 Refill [facility] Internal Medicine [address] [place], [place] [phone] Abran Lacey MD [address] [place], [place] [phone] [email or web address] Medication Refill Social History Tobacco Use Types Packs/Day Years Used Date Smoking Tobacco: Former Cigarettes 1.5 45 1 915 - 2000 Smokeless Tobacco: Never Alcohol Use [...] as of this encounter Progress Notes * Candy Brandt [place] - 07/02/2025 2:41 PM EDT Contacted pt's spouse Fabiana informed refill needs to be sent to pt's eye doctor. documented in this encounter Plan of Treatment Upcoming Encounters Date Type Department Care Team (Late st Contact Info) Description 08/30/2025 9:00 AM EST Office Visit [facility] Internal Medicine [address] [place] [address] Abran Lacey MD [address] [place] [address] [email or web address] 09/08/2025 11:30 AM EST Office Visit [facility] Internal Medicine [address] [place] [address] Abran Lacey MD [address] [place] [address] [email or web address] documented as of this encounter Visit Diagnoses Not on filedocumented in this encounter Additional Health Concerns Assessment Noted Time PHQ-2 Depression Total Score: 0 02/26/20 25 8:05 AM EDT documented as of this encounter Care Teams Head Of Ethics And Compliance Relationship Specialty Start Date End Date Abran Lacey MD [address] [place] [address] [email or web address] PCP - General Internal Medicine 06/30/20 Abran Lacey MD [address] [place] [address] [email or web address] Insurance Assigned Provider 01/25/24 Edgardo Salmeron MD [address] [place] [address] [email or web address] 10/29/19 Raymundo Mtz MD [address] [place] [address] [email or web address] Vascular Surgery 08/29/20 documented as of this encounter Additional Source Comments The information contained in this document represents components of the legal health record. It is not the complete legal health record.[facility]
--- OUTSIDE RECORDS SUMMARY | 2025-07-06 07:56 | XMS_ITS | Clinical Summary ---
Author Organization [facility] Address [address] [facility] [address] [place] [address] Phone Care Team Providers Care Liquefaction And Regasification Helper Name Role Phone Abran Lacey MD Unavailable [phone] Edgardo Salmeron MD Unavailable [phone] Abran Lacey MD Primary Care Provider [phone] Raymundo Mtz MD Unavailable [phone] Allergies Active Allergy Reactions Criticality Noted Date Comments Amoxicillin Hives 02/08/2022 Erythromycin Hives 02/08/2022 Macrolide Antibiotics Other (See Comments) 05/1997 rash Penicillins Other (See Comments) 02/25/1997 rash Tetracyclines Other (See Comments) 02/25/1997 rash Zoster Vaccine Live (Pf) Rash Low 10/31/2020 Medications aspirin 81 MG EC tablet 1 tablet daily 016 Active finasteride (PROSCAR) 5 mg tablet 1 tablet daily Activ e flaxseed oil 1,000 mg Cap 1,000 mg daily. Active triamcinolone acetonide 0.1 % cream Apply 1 application. topically daily as needed. 013 Active cholecalciferol, vitamin D3, 25 mcg (1,000 unit) capsule Take 1,000 Units by mouth daily. Active acetaminophen (TYLENOL) 325 mg tablet Take 325 mg by mouth as needed. But rare Active RESTASIS 0.05 % suspension Place 1 drop into each eye 2 (two) times a day. 022 Active fluorouraciL (EFUDEX) 5 % cream Apply 1 Application topically 2 (two) times a day as needed. x1 week Active propylene glycoL (SYSTANE BALANCE) 0.6 % Drop Place 1 drop into each eye 4 (four) times a day. 023 Active docusate (COLACE) 100 mg tablet Take 100 mg by mouth daily as needed for mild constipation. Active rosuvastatin (CRESTOR) 10 MG tabletIndications:Pure hypercholesterolemia Take 1 tablet (10 mg total) by mouth daily. 90 tablet 3 024 Active metoprolol tartrate (LOPRESSOR) 25 MG tablet TAKE 1/2 OF A TABLET (12.5 MG TOTAL) BY MOUTH TWICE A DAY 90 tablet 3 025 Active traZODone (DESYREL) 50 MG tabletIndications:Prima ry insomnia TAKE 1 TABLET BY MOUTH NIGHTLY AT BEDTIME 90 tablet 3 025 Active ibuprofen (ADVIL,MOTRIN) 200 MG tablet Take 200 mg by mouth as needed for pain (specific location in comments). Active Active Problems Problem Noted Date Diagnosed Date Left arm pain 03/18/2025 Assessment & Plan (03/18/2025 10:27 AM EDT): Patient presenting today with 2 days of left shoulder pain status post mechanical fall without head strike or loss of consciousness. He attempted to go to physical therapy for a prior fall but he was turned away due to not having received an x- ray from this current fall. No precipitating symptoms to the fall. On exam there is a 2 cm oval bruise noted along the left lateral elbow but no other bruising noted, not on any blood thinners other than baby aspirin. No tenderness to palpation along the left shoulder or humerus, no palpable deformities noted. No overlying erythema or bruising or swelling of the left shoulder. Low suspicion for fracture at this time, however will obtain shoulder and humerus x-ray for further assessment. Once x-rays are received and if they are negative for fracture, patient will be cleared to go back to physical therapy. Advised him to be careful with his steps to prevent further falls. He notes understanding. Will continue with Tylenol for pain management. Advised that the pain will likely subside as time goes on, especially with physical therapy in conjunction to Tylenol. Hematoma of right thigh 05/06/2024 Assessment & Plan (05/06/2024 12:51 PM EDT): Hematoma of the right thigh after striking his leg on a riser while golfing. Extensive ecchymosis over the right thigh extending into the right calf. Concern for encapsulated hematoma on the anterior aspect of the right thigh no signs of compartment syndrome. No tingling or numbness. Good capillary refill. Continue Tylenol as needed pain Ortho consult for evaluation with Dr. Rhodes Repeat CBC Swelling of left wrist 10/04/2023 Assessment & Plan (10/04/2023 2:31 PM EST): Left swelling of the wrist with good range of motion, certainly a fracture is possible if not probable. I would like the patient to go to [facility] and see if he can get a wrist splint to protect the wrist from displacement. In the meantime we will send him to [facility] and [place] for x-ray of the wrist and if positive for fracture will refer to Dr. Rodas in [place]. 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 Age-related cataract of both eyes 01/20/2018 Benign non-nodular prostatic hyperplasia with lower urinary tract symptoms 01/20/2018 History of carotid endarterectomy 01/20/2018 Microscopic hematuria 01/20/2018 Osteoarthritis 01/20/2018 Carotid artery disease 01/20/2018 Pure hypercholesterolemia 09/18/2017 Primary insomnia 09/18/2017 Osteoarthritis of hip 06/24/2013 Overview (01/20/2018): Osteoarthritis of hip Encounters Date Type Department Care Team Description 07/02/2025 Refill [facility] [address] [place] [address] Abran Lacey MD Medication Refill 06/23/2025 3:40 PM EDT - 06/23/2025 11:59 PM EDT Hospital Encounter [facility] [address] [place] [address] Abran Lacey MD Discharge Disposition: Home or Self Care 06/23/2025 2:30 PM EDT Office Visit [facility] Internal Medicine [address] [place] [address] Abran Lacey MD Essential hypertension (Primary Dx); Balance disorder; Anemia, unspecified type; Impaired fasting glucose; Fatigue, unspecified type; Chronic right shoulder pain; Falls frequently 06/23/2025 Telephone [facility] Internal Medicine [address] [place] [address] Abran Lacey MD 06/23/2025 Telephone [facility] Internal Medicine [address] [place] [address] Abran Lacey MD from Last 3 Months Immunizations Immunization Administration Dates Next Due COVID-19 (Pre-08/12) Pfizer Vaccine, mRNA, PF 08/06/2021,12/20/2020,11/29/2020 Pneumococcal polysaccharide PPSV23 09/20/2005 Td (adult) 5 Lf Tetanus Toxo id, PF, Adsorbed 10/21/2007 Zoster live 11/25/2012 Family History Medical History Relation Comments Coronary artery disease Brother Coronary artery disease Mother Relation Status Comments Brother (Age 59) cancer behind eye Father (Age 84) cva Mother (Age 75) Social History Tobacco Use Types Packs/Day Years Used Date Smoking Tobacco: Former Cigarettes 1.5 45 1 505 - 2000 Smokeless Tobacco: Never Tobacco Cessation:Counseling Given: Not Answered Alcohol Use Standard Drinks/Week Comments Yes 1 [...] Orientation Straight 03/01/2022 10 :33 PM EDT Last Filed Vital Signs Vital Sign Reading Time Taken Comments Blood Pressure 147/62 06/23/2025 2:36 PM EDT Pulse 63 06/23/2025 2:36 PM EDT Temperature 36.1 C (97 F) 06/23/2025 2:36 PM EDT Respiratory Rate 20 03/18/2025 10:08 AM EDT Oxygen Saturation 98% 06/23/2025 2:36 PM EDT Inhaled Oxygen Concentration - - Weight 71.4 kg (157 lb 6.4 oz) 06/23/2025 2:36 P M EDT Height 178.4 cm (5' 10.24 ) 06/23/2025 2:36 PM E DT Body Mass Index 22.43 06/23/2025 2:36 PM EDT Plan of Treatment Upcoming Encounters Date Type Department Care Team (Late st Contact Info) Description 08/30/2025 9:00 AM EST Office Visit [facility] Internal Medicine [address] [place] [address] Abran Lacey MD [address] [place] [address] [email or web address] 09/08/2025 11:30 AM EST Office Visit [facility] Internal Medicine [address] [place] [address] Abran Lacey MD [address] [place] [address] [email or web address] Health Maintenance Due Date Last Done Comments COLOGUARD 1984 FIT TEST 1984 FOBT 1984 SIGMOIDOSCOPY 1984 VIRTUAL COLONOSCOPY 1984 PNEUMOCOCCAL VACCINES (50+ years) (2 of 2 - PCV) 09/20/2006 09/20/2005 RSV VACCINE (1 - 1-dose 75+ series) 2014 COLONOSCOPY 10/06/2020 10/06/2015 COLORECTAL CANCER SCREENING 10/06/2020 COVID-19 VACCINE ( season) 2025 07/23/2022, 01/22/2022, 08/06/2021, Additional history exists BLOOD PRESSURE 12/21/2025 06/23/2025 DEPRESSION SCREENING 02/25/2026 02/25/2025 HEPATITIS A VACCINES Aged Out No long er eligible based on patient's age to complete this topic HIB VACCINES Aged Out No longer eligi ble based on patient's age to complete this topic MENINGOCOCCAL VACCINES (ACWY) Aged Out No longer eligible based on patient's age to complete this topic MENINGOCOCCAL VACCINES (B) Aged Out N o longer eligible based on patient's age to complete this topic Medical Devices Not on file Procedures Procedure Name Priority Date/Time Associated Diagnosis Comments MAGNESIUM Routine 06/23/2025 3:41 PM EDT Essential hypertension FOLATE Routine 06/23/2025 3:41 PM EDT Anemia, unspecified type VITAMIN B12 Routine 06/23/2025 3:41 PM EDT Anemia, unspecified type IRON AND IRON BINDING CAPACITY Routine 06/23/2025 3:41 PM EDT Anemia, unspecified type FREE T4 Routine 06/23/2025 3:41 PM EDT Fatigue, unspecified type FERRITIN Routine 06/23/2025 3:41 PM EDT Anemia, unspecified type TSH WITH REFLEX Routine 06/23/2025 3:41 PM EDT Fatigue, unspecified type C-REACTIVE PROTEIN Routine 06/23/2025 3: 41 PM EDT Fatigue, unspecified type SEDIMENTATION RATE (ESR) Routine 06/23/2025 3:41 PM EDT Fatigue, unspecified type COMPREHENSIVE METABOLIC PANEL Routine 06/23/2025 3:41 PM EDT Essential hypertension Anemia, unspecified type CBC AND DIFFERENTIAL Routine 06/23/2025 3:41 PM EDT Essential hypertension Anemia, unspecified type MRI BRAIN Routine 06/23/2025 3:27 PM EDT Balance disorder Falls frequently from Last 3 Months Results * (ABNORMAL) Comprehensive metabolic panel (06/23/2025 3:41 PM EDT) SODIUM 140 133 - 146 mmol/L [facility] POTASSIUM 4.1 3.3 - 5.1 mmol/L [facility] CHLORIDE 104 96 - 108 mmol/L [facility] CO2 28 21 - 35 mmol/L [facility] BUN 22(H) 6 - 19 mg/dL [facility] CREATININE 0.90 0.5 - 1.5 mg/dL [facility] GLUCOSE 93 70 - 99 mg/dL [facility] ALBUMIN 4.7 3.9 - 4.8 g/dL [facility] TOTAL PROTEIN 7.3 6.5 - 8.0 g/dL [facility] CALCIUM 9.5 8.4 - 10.3 mg/dL [facility] ALKALINE PHOSPHATASE 46 39 - 117 U/L [facility] TOTAL BILIRUBIN 0.9 0.0 - 1.2 mg/dL [facility] AST 41(H) 0 - 37 U/L [facility] ALT 20 0 - 40 U/L [facility] GLOBULIN 2.6 1 - 4.8 g/dL [facility] EGFR 84 >59 mL/min/1.7 3m2 [facility] Comment:Estimated glomerular filtration rate calculated using the CKD-EPI refit equation. ANION GAP 12 10 - 20 mmol/L [facility] Blood 06/23/2025 3:41 PM EDT 06/23/2025 3:46 PM EDT Abran Lacey MD LAB BLOOD ORDERABLES Final Re sult Performing Organization Address [facility] Co de Phone Number [address] [address] * TSH with reflex (06/23/2025 3:41 PM EDT) TSH 1.30 0.27 - 4.20 uIU/mL [facility] Blood 06/23/2025 3:41 PM EDT 06/23/2025 3:46 PM EDT us Abran Lacey MD LAB BLOOD ORDERABLES Final Re sult Performing Organization Address [facility] Co de Phone Number [address] [address] * (ABNORMAL) Iron and iron binding capacity (06/23/2025 3:41 PM EDT) IRON 165(H) 45 - 160 ug/dL [facility] IRON BINDING CAPACITY 227(L) 228 - 428 ug/dL [facility] TRANSFERRIN SATURAT. 73(H) 20 - 55 % [facility] Blood 06/23/2025 3:41 PM EDT 06/23/2025 3:46 PM EDT Abran Lacey MD LAB BLOOD ORDERABLES Final Re sult Performing Organization Address [facility] Co de Phone Number [address] [address] * Sedimentation rate (ESR) (06/23/2025 3:41 PM EDT) ESR 3 0 - 20 mm/h [facility] Blood 06/23/2025 3:41 PM EDT 06/23/2025 3:46 PM EDT us Abran Lacey MD LAB BLOOD ORDERABLES Final Re sult [facility] [address], [place] [id number] * (ABNORMAL) CBC and differential (06/23/2025 3:41 PM EDT) WBC 5.54 4.00 - 11.00 K/uL [facility] RBC 3.29(L) 4.50 - 5.90 M/uL [facility] HGB 11.3(L) 13.5 - 17.5 g/dL [facility] HCT 34.5(L) 41.0 - 53.0 % [facility] PLT 170 150 - 450 K/uL [facility] MCV 104.9(H) 80.0 - 100.0 fL [facility] MCH 34.3(H) 27.0 - 31.0 pg [facility] MCHC 32.8 32.0 - 36.0 g/dL [facility] RDW 13.2 11.5 - 14.5 % [facility] MPV 10.4 8.4 - 12.0 fL [facility] NRBC 0.00 0.00 /100 WBCs [facility] ABSOLUTE NRBC 0.00 0.00 K/uL [facility] DIFF METHOD Auto [facility] NEUTS 55.8 48.0 - 76.0 % [facility] LYMPHS 27.4 18.0 - 41.0 % [facility] MONOS 13.5(H) 4.0 - 11.0 % [facility] EOS 2.2 0.0 - 5.0 % [facility] BASOS 0.7 0.0 - 1.5 % [facility] Granulocytes, immature (%) 0.4 0.0 - 0.9 % [facility] ABSOLUTE NEUTS 3.09 1.92 - 7.60 K/uL [facility] ABSOLUTE LYMPHS 1.52 0.72 - 4.10 K/uL [facility] ABSOLUTE MONOS 0.75 0.16 - 1.10 K/uL [facility] ABSOLUTE EOS 0.12 0.00 - 0.50 K/uL [facility] ABSOLUTE BASOS 0.04 0.00 - 0.15 K/uL [facility] Granulocytes, immature 0.02 0.00 - 0.09 K/uL [facility] Blood 06/23/2025 3:41 PM EDT 06/23/2025 3:46 PM EDT us Abran Lacey MD LAB BLOOD ORDERABLES Final Re sult [address] [address] * C-Reactive Protein (06/23/2025 3:41 PM EDT) C REACTIVE PROTEIN <3.0 0.0 - 4.0 mg/L [facility] Blood 06/23/2025 3:41 PM EDT 06/23/2025 3:46 PM EDT us Abran Lacey MD LAB BLOOD ORDERABLES Final Re sult Performing Organization Address [facility]/ZIP Co de Phone Number [address] [address] * Free T4 (06/23/2025 3:41 PM EDT) FREE T4 1.1 0.9 - 1.7 ng/dL [facility] Blood 06/23/2025 3:41 PM EDT 06/23/2025 3:46 PM EDT us Abran Lacey MD LAB BLOOD ORDERABLES Final Re sult Performing Organization Address [facility]/ZIP Co de Phone Number [address] [address] * Magnesium (06/23/2025 3:41 PM EDT) MAGNESIUM 2.2 1.6 - 2.6 mg/dL [facility] Blood 06/23/2025 3:41 PM EDT 06/23/2025 3:46 PM EDT us Abran Lacey MD LAB BLOOD ORDERABLES Final Re sult Performing Organization Address [facility]/ZIP Co de Phone Number [address] [address] * Folate (06/23/2025 3:41 PM EDT) FOLIC ACID 13.8 4.2 - 19.9 ng/mL [facility] Blood 06/23/2025 3:41 PM EDT 06/23/2025 3:46 PM EDT us Abran Lacey MD LAB BLOOD ORDERABLES Final Re sult Performing Organization Address [facility] Co de Phone Number [address] [address] * (ABNORMAL) Ferritin (06/23/2025 3:41 PM EDT) FERRITIN 1,027(H) 30 - 400 ug/L [facility] Blood 06/23/2025 3:41 PM EDT 06/23/2025 3:46 PM EDT us Abran Lacey MD LAB BLOOD ORDERABLES Final Re sult Performing Organization Address [facility] Co de Phone Number [address] [address] * Vitamin B12 (06/23/2025 3:41 PM EDT) VITAMIN B12 488 232 - 1,245 pg/mL [facility] Blood 06/23/2025 3:41 PM EDT 06/23/2025 3:46 PM EDT us Abran Lacey MD LAB BLOOD ORDERABLES Final Re sult Performing Organization Address City/[facility]/ZIP Co de Phone Number [address] [address] from Last 3 Months Insurance MEDICARE PART A & B [employer] MEDICARE SUPPLEMENT MEDICARE PART A & B [employer] MEDICARE SUPPLEMENT MEDICARE PART A & B [facility] EXTENSION MEDICARE SUPPLEMENT MEDICARE PART A & B Member Subscriber Plan / Payer ( fective 2004-Present) Name:Jorje Chopra Member ID:[id number] Relation to Subscriber:Self Name:Jorje Chopra. Subscriber ID:[id number] Payer ID:[id number] Group ID:Not on file Type:Medicare Address: [employer] [address] [place] [id number] [place] [address] EXTENSION MEDICARE SUPPLEMENT MEDICARE PART A & B [facility] EXTENSION MEDICARE SUPPLEMENT MEDICARE PART A & B [employer] MEDICARE SUPPLEMENT MEDICARE PART A & B [employer] MEDICARE SUPPLEMENT MEDICARE PART A & B [facility] MEDICARE SUPPLEMENT MEDICARE PART A & B [facility] EXTENSION MEDICARE SUPPLEMENT Advance Directives For more information, please contact: [phone] (9AM - 5PM [facility], Saturday-Saturday) Documents on File Type Date Recorded Patient Experimental Assembler Expl anation Healthcare Proxy 07/21/2021 Healthcare Proxy Care Teams Liquefaction And Regasification Helper Relationship Specialty Start Date End Date Abran Lacey MD [address] [place] [address] [email or web address] PCP - General Internal Medicine 06/30/20 Abran Lacey MD [address] [place] [id number] [email or web address] Assigned Provider 01/25/24 Edgardo Salmeron MD [address] [place] [id number] [email or web address] 10/29/19 Raymundo Mtz MD [address] [place] [id number] [email or web address] [place] 08/29/20 Additional Source Comments The information contained in this document represents components of the legal health record. It is not the complete legal health record.[facility]
== END 2025-07-06 07:52 | disposition home or self-care (01) ==
LOC: HO.MRI 07:51
PROVIDERS: PCP Internal Medicine; Visit Provider Internal Medicine
DX: R26.89 Other abnormalities of gait and mobility (principal); R29.6 Repeated falls
CPT/HCPCS: 70551

== ENCOUNTER → 2025-07-06 08:10 | Outpatient (BNV) | payer MEDICARE, OTHER, SELFPAY | PROVIDERS: PCP Internal Medicine; Visit Provider Radiology Diagnostic Radiology | DX: R27.0 Ataxia, unspecified (principal); R29.6 Repeated falls | CPT/HCPCS: 70551 ==

== ENCOUNTER 2025-09-04 07:14 | Outpatient (REF) | payer MEDICARE, OTHER, SELFPAY ==
--- OUTSIDE RECORDS SUMMARY | 2025-08-30 09:00 | XMS_ITS | Encounter Summary ---
Author Organization [facility] Address [facility]ly [facility] [email or web address] [address] [address] Phone Care Team Providers Care A R Collections Rep Name Role Phone Abran Lacey MD Unavailable [phone] Edgardo Salmeron MD Unavailable [phone] Abran Lacey MD Primary Care Provider [phone] Raymundo Mtz MD Unavailable [phone] Reason for Visit * Reason Comments Follow-up 6 month f/u Encounter Details Date Type Department Care Team (Latest Contact Info) Description 08/30/2025 9:00 AM EST Office Visit [facility] Internal Medicine [address] [place], [place] [id number] Abran Lacey MD [address] [place] [address] [email or web address] Essential hypertension (Primary Dx); Anemia, unspecified type; Impaired fasting glucose; Impaired fasting blood sugar; Bruising Social History Tobacco Use Types Packs/Day Years Used Date Smoking Tobacco: Former Cigarettes 1.5 45 1 095 - 2000 Smokeless Tobacco: Never Alcohol Use [...] PM EDT documented as of this encounter Last Filed Vital Signs Vital Sign Reading Time Taken Comments Blood Pressure 140/72 08/30/2025 10:07 AM EST Pulse 63 08/30/2025 8:50 AM EST Temperature 36.1 C (97 F) 08/30/2025 8:50 AM EST Respiratory Rate - - Oxygen Saturation 97% 08/30/2025 8:50 AM EST Inhaled Oxygen Concentration - - Weight 72.9 kg (160 lb 12.8 oz) 08/30/2025 8:50 AM EST Height 178.4 cm (5' 10.24 ) 08/30/2025 8:[address] Body Mass Index 22.92 08/30/2025 8:50 AM EST documented in this encounter Progress Notes * Abran Lacey MD - 08/30/2025 9:00 AM EST Subjective Jorje Chopra is a 85 y.o. male. History of Present Illness Jorje Chopra is an 85-year-old male who presents for a follow-up visit after a fall and ongoing balance issues. He experiences balance issues, particularly in the family worker when getting up, requiring him to 'hang on to a bedpost' for stability. These balance issues tend to minimize and disappear after a short time. He has a history of falls, with the most recent occurring at the [facility] due to an unseen elevated step. He also fell in February while going up a flight of stairs and again a month later while walking. He uses a cane occasionally, especially in crowded places like malls, to prevent people from bumping into him. He has bruising behind his legs. He experiences joint pain and stiffness, particularly in the shoulders, which worsens with certain movements like lifting his shirt. He attended therapy for about six weeks, but it did not significantly improve his symptoms. He has a history of joint replacements. He mentions skin changes on his legs, including color changes and spots, which he is unsure about the cause. No swelling in the legs but notes some bruising on his arms. His blood pressure readings have been variable, with a high reading in the morning followed by a normal reading. He does not regularly check his blood pressure at home. He takes aspirin 81 mg daily. He does not recall the last time he had blood work done, possibly in the spring. He mentions a change in diet over the years, eating less than before, and his weight remains stablearound 155-160 pounds. He does not eat much protein in the morning, typically having coffee for breakfast. No recent significant weight changes. No headaches, chest pain, vision, or hearing problems, although his comments on his hearing. He does not regularly experience fatigue, but he feels tired after swimming and exercising in the pool, sometimes taking a nap in the afternoon. Current Outpatient Medications Ordered in [facility] Medication Sig acetaminophen (TYLENOL) 325 mg tablet Take 325 mg by mouth as needed. But rare aspirin 81 MG EC tablet 1 tablet daily cholecalciferol, vitamin D3, 25 mcg (1,000 unit) capsule Take 1,000 Units by mouth daily. docusate (COLACE) 100 mg tablet Take 100 mg by mouth daily as needed for mild constipation. finasteride (PROSCAR) 5 mg tablet 1 tablet daily flaxseed oil 1,000 mg Cap 1,000 mg daily. fluorouraciL (EFUDEX) 5 % cream Apply 1 Application topically 2 (two) times a day as needed. x1 week ibuprofen (ADVIL,MOTRIN) 200 MG tablet Take 200 mg by mouth as needed for pain (specific location in comments). metoprolol tartrate (LOPRESSOR) 25 MG tablet TAKE 1/2 OF A TABLET (12.5 MG TOTAL) BY MOUTH TWICE A DAY propylene glycoL (SYSTANE BALANCE) 0.6 % Drop Place 1 drop into each eye 4 (four) times a day. RESTASIS 0.05 % suspension Place 1 drop into each eye 2 (two) times a day. traZODone (DESYREL) 50 MG tablet TAKE 1 TABLET BY MOUTH NIGHTLY AT BEDTIME rosuvastatin (CRESTOR) 10 MG tablet TAKE 1 TABLET BY MOUTH EVERY DAY triamcinolone acetonide 0.1 % cream Apply 1 application. topically daily as needed. Review of Systems Objective Physical Exam BP (!) 140/72 (BP Location: Right arm, Patient Position: Sitting, Cuff Size: Medium) Pulse 63 Temp 36.1 ??C (97 ??F) (Oral) Ht 178.4 cm (5' 10.24 ) Wt 72.9 kg (160 lb 12.8 oz) SpO2 97% BMI 22.92 kg/m?? HEENT:PERRTL, EOM intact, fundi benign, TM's clear, throat clear. NECK: supple, no thyroid megaly, no adenopathy. LUNGS: clear to A&P,no wheezing/rhonichi/rales. HEART: RRR S1S2 without murmurs, rubs or gallops. ABDOMEN: bowel sounds: normal, soft non tender without masses. EXTREMITIES: No edema in legs. Dorsalis pedis pulse 1+ on right. Posterior tibial pulse trace. 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 - Advised caution when walking, especially in crowded areas. - Encouraged use of a cane for stability as needed. Right shoulder pain with osteoarthritis Persistent pain post-fall, likely due to osteoarthritis and joint replacements. Essential hypertension Blood pressure normalized upon retesting. No regular home monitoring. - Encouraged regular home blood pressure monitoring. Anemia Possible anemia-related symptoms with no recent blood work. - Ordered blood work to assess anemia status. I obtained verbal consent from the patient or their proxy to record this visit for purposes of producing a draft of the encounter documentation. documented in this encounter Plan of Treatment Upcoming Encounters Date Type Department Care Team (Late st Contact Info) Description 02/25/2026 10:30 AM EDT Office Visit [facility] Internal Medicine [address] [place] [phone] Abran Lacey MD [address] [place] [phone] [email or web address] Scheduled Orders Name Type Priority Associated Diagnoses Orde r Schedule CBC and Differential Lab Routine Essential hypertension Anemia, unspecified type Bruising Expected: 08/30/2025, Expires: 08/30/2026 Comprehensive Metabolic Panel (CMP) Lab Routine Essential hypertension Anemia, unspecified type Expected: 08/30/2025, Expires: 08/30/2026 Hemoglobin A1c Lab Routine Impaired fasting blood sugar Expected: 08/30/2025, Expires: 08/30/2026 Lipid Panel Lab Routine Essential hypertension Expected: 08/30/2025, Expires: 08/30/2026 Ferritin Lab Routine Anemia, unspecified type Expected: 08/30/2025, Expires: 08/30/2026 PT-INR Lab Routine Bruising Expected: 08/30/2025, Expires: 08/30/2026 Iron and Total Iron Binding Capacity (Iron/TIBC) Lab Routine Anemia, unspecified type Expected: 08/30/2025, Expires: 08/30/2026 documented as of this encounter Visit Diagnoses Diagnosis Essential hypertension- Primary Unspecified essential hypertension Anemia, unspecified type Impaired fasting glucose Impaired fasting blood sugar Impaired fasting glucose Bruising Contusion of unspecified site documented in this encounter Additional Health Concerns Assessment Noted Time PHQ-2 Depression Total Score: 0 02/26/20 25 8:05 AM EDT documented as of this encounter Care Teams A R Collections Rep Relationship Specialty Start Date End Date Abran Lacey MD [address] [place] [address] [email or web address] PCP - General Internal Medicine 06/30/20 Abran Lacey MD [address] [place] [address] [email or web address] Insurance Assigned Provider 01/25/24 Edgardo Salmeron MD [address] [place] [id number] [email or web address] [email or web address] 10/29/19 Raymundo Mtz MD [address] [place] [id number] [email or web address] [place] Surgery 08/29/20 documented as of this encounter Additional Source Comments The information contained in this document represents components of the legal health record. It is not the complete legal health record.[facility]
--- OUTSIDE RECORDS SUMMARY | 2025-09-04 07:17 | XMS_ITS | Encounter Summary ---
Author Organization [facility] Address [facility] [employer] [facility] [address] [place] [address] Phone Care Team Providers Care Moisture Machine Tender Name Role Phone Abran Lacey MD Unavailable Edgardo Salmeron MD Unavailable [phone] Abran Lacey MD Primary Care Provider [phone] Raymundo Mtz MD Unavailable [phone] Encounter Details Date Type Department Care Team (Late st Contact Info) Description 06/23/2025 Telephone [facility] Internal Medicine [address] [place], [place] [phone] Abran Lacey MD [address] [place] [address] [email or web address] Social History Tobacco Use Types Packs/Day Years Used Date Smoking Tobacco: Former Cigarettes 1.5 45 1 865 - 2000 Smokeless Tobacco: Never Alcohol Use [...] 8:35 AM EDT [place]ax[place] [facility] [place] [phone] with notation no authorization needed, confirmation receipt received. * Boaz Avalos - 06/23/2025 4:09 PM EDT MRI brain ordered to be done at [facility]. To authorization dept to see if PA needed then to [place] [facility] [place]. documented in this encounter Plan of Treatment Upcoming Encounters Date Type Department Care Team (Late st Contact Info) Description 02/25/2026 10:30 AM EDT Office Visit [facility] Internal Medicine [address] [place] [address] Abran Lacey MD [address] [place] [address] [email or web address] documented as of this encounter Visit Diagnoses Not on filedocumented in this encounter Additional Health Concerns Assessment Noted Time PHQ-2 Depression Total Score: 0 02/26/20 25 8:05 AM EDT documented as of this encounter Care Teams Moisture Machine Tender Relationship Specialty Start Date End Date Abran Lacey MD [address] [place] [address] [email or web address] PCP - General Internal Medicine 06/30/20 Abran Lacey MD [address] [place] [address] [email or web address] Insurance Assigned Provider 01/25/24 Edgardo Salmeron MD [address] [place] [address] [email or web address] 10/29/19 Raymundo Mtz MD [address] [place] [address] [email or web address] Vascular Surgery 08/29/20 documented as of this encounter Additional Source Comments The information contained in this document represents components of the legal health record. It is not the complete legal health record.[facility]
--- OUTSIDE RECORDS SUMMARY | 2025-09-04 07:17 | XMS_ITS | Clinical Summary ---
Author Organization [facility] Address [address] [place] [address] Phone Care Team Providers Care Patient Scheduler Name Role Phone Abran Lacey MD Unavailable [phone] Edgardo Salmeron MD Unavailable Abran Lacey MD Primary Care Provider [phone] Raymundo Mtz MD Unavailable [phone] Allergies Active Allergy Reactions Criticality Noted Date Comments Amoxicillin Hives 02/08/2022 Erythromycin Hives 02/08/2022 Macrolide Antibiotics Other (See Comments) 05/1997 rash Penicillins Other (See Comments) 02/25/1997 rash Tetracyclines Other (See Comments) 02/25/1997 rash Zoster Vaccine Live (Pf) Rash Low 10/31/2020 Medications aspirin 81 MG EC tablet 1 tablet daily 2015 Active finasteride (PROSCAR) 5 mg tablet 1 tablet daily Active flaxseed oil 1,000 mg Cap 1,000 mg daily. Active triamcinolone acetonide 0.1 % cream Apply 1 application. topically daily as needed. 2012 Active cholecalciferol, vitamin D3, 25 mcg (1,000 unit) capsule Take 1,000 Units by mouth daily. Active acetaminophen (TYLENOL) 325 mg tablet Take 325 mg by mouth as needed. But rare Active RESTASIS 0.05 % suspension Place 1 drop into each eye 2 (two) times a day. 2021 Active fluorouraciL (EFUDEX) 5 % cream Apply 1 Application topically 2 (two) times a day as needed. x1 week Active propylene glycoL (SYSTANE BALANCE) 0.6 % Drop Place 1 drop into each eye 4 (four) times a day. 2022 Active docusate (COLACE) 100 mg tablet Take 100 mg by mouth daily as needed for mild constipation. Active metoprolol tartrate (LOPRESSOR) 25 MG tablet TAKE 1/2 OF A TABLET (12.5 MG TOTAL) BY MOUTH TWICE A DAY 90 tablet 3 2024 Active traZODone (DESYREL) 50 MG tabletIndications:Prim mikal insomnia TAKE 1 TABLET BY MOUTH NIGHTLY AT BEDTIME 90 tablet 3 2024 Active ibuprofen (ADVIL,MOTRIN) 200 MG tablet Take 200 mg by mouth as needed for pain (specific location in comments). Active rosuvastatin (CRESTOR) 10 MG tabletIndications:Pure hypercholesterolemia TAKE 1 TABLET BY MOUTH EVERY DAY 90 tablet 2024 Active rosuvastatin (CRESTOR) 10 MG tabletIndications:Pure hypercholesterolemia Take 1 tablet (10 mg total) by mouth daily. 90 tablet 3 08/30 Discontinued Active Problems Problem Noted Date Diagnosed Date [...] would like the patient to go to [facility] and see if he can get a wrist splint to protect the wrist from displacement. In the meantime we will send him to [facility] [place] for x-ray of the wrist and if positive for fracture will refer to Dr. Rodas in [place]. 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 Age-related cataract of both eyes 01/20/2018 Benign non-nodular prostatic hyperplasia with lower urinary tract symptoms 01/20/2018 History of carotid endarterectomy 01/20/2018 Microscopic hematuria 01/20/2018 Osteoarthritis 01/20/2018 Carotid artery disease 01/20/2018 Pure hypercholesterolemia 09/18/2017 Primary insomnia 09/18/2017 Osteoarthritis of hip 06/24/2013 Overview (01/20/2018): Osteoarthritis of hip Encounters Date Type Department Care Team Description 08/30/2025 9:00 AM EST Office Visit [facility] Internal Medicine [address] [facility] [place] [address] Abran Lacey MD Essential hypertension (Primary Dx); Anemia, unspecified type; Impaired fasting glucose; Impaired fasting blood sugar; Bruising 08/28/2025 Refill [facility] Internal [facility] [address] [place] [address] Abran Lacey MD Medication Refill 07/09/2025 Telephone [facility] Internal [address] [address] Abran Lacey MD Results 07/07/2025 Orders Only [facility] Internal Medicine [address] [place] [address] Kristen Jiang MD 07/02/2025 Refill [facility] [address] [place] [address] Abran Lacey MD Medication Refill 06/23/2025 3:40 PM EDT - 06/23/2025 11:59 PM EDT Hospital Encounter [id number] [place] [address] Abran Lacey MD Discharge Disposition: Home or Self Care 06/23/2025 2:30 PM EDT Office Visit [facility] Internal [facility] [address] [place] [address] Abran Lacey MD Essential hypertension (Primary Dx); Balance disorder; Anemia, unspecified type; Impaired fasting glucose; Fatigue, unspecified type; Chronic right shoulder pain; Falls frequently 06/23/2025 Telephone [facility] Internal Medicine [address] [place] [address] Abran Lacey MD 06/23/2025 Telephone [facility] Internal Medicine [address] [place] [address] Abran Lacey MD from Last 3 Months [...] Smoking Tobacco: Former Cigarettes 1.5 45 1 955 - 2000 Smokeless Tobacco: Never Tobacco Cessation:Counseling [...] F) 08/30/2025 8:50 AM EST Respiratory Rate 20 03/18/2025 10:0 8 AM EDT Oxygen Saturation 97% 08/30/2025 8:50 AM EST Inhaled Oxygen Concentration - - Weight 72.9 kg (160 lb 12.8 oz) 08/30/2025 8:50 AM EST Height 178.4 cm (5' 10.24 ) 08/30/2025 8:50 AM E Body Mass Index 22.92 08/30/2025 8:50 AM EST Plan of Treatment Upcoming Encounters Date Type Department Care Team (Late st Contact Info) Description 02/25/2026 10:30 AM EDT Office Visit [facility] Internal Medicine [address] [place] [address] Abran Lacey MD [address] [place] [address] Health Maintenance Due Date Last Done Comments COLOGUARD 1984 FIT TEST 1984 FOBT 1984 SIGMOIDOSCOPY 1984 VIRTUAL COLONOSCOPY 1984 PNEUMOCOCCAL VACCINES (50+ years) (2 of 2 - PCV) 09/20/2006 09/20/2005 RSV VACCINE (1 - 1-dose 75+ series) 2014 COLONOSCOPY 10/06/2020 10/06/2015 COLORECTAL CANCER SCREENING 10/06/2020 COVID-19 VACCINE ( season) 2025 07/23/2022, 01/22/2022, 08/06/2021, Additional history exists DEPRESSION SCREENING 02/25/2026 02/25/2025 HEPATITIS A VACCINES Aged Out No long er eligible based on patient's age to complete this topic HIB VACCINES Aged Out No longer eligi ble based on patient's age to complete this topic IPV VACCINES Aged Out No longer eligi ble based on patient's age to complete this topic MENINGOCOCCAL VACCINES (ACWY) Aged Out No longer eligible based on patient's age to complete this topic MENINGOCOCCAL VACCINES (B) Aged Out N o longer eligible based on patient's age to complete this topic Medical Devices Not on file Procedures Procedure Name Priority Date/Time Associated Diagnosis Comments OUTSIDE MR HEAD/NECK REPORT ONLY Routine 07/06/2025 1:43 PM EDT MAGNESIUM Routine 06/23/2025 3:41 PM EDT Essential [...] PM EDT Fatigue, unspecified type C-REACTIVE PROTEIN (CRP) Routine 06/23/2025 3:41 PM EDT Fatigue, unspecified type SEDIMENTATION RATE (ESR) Routine 06/23/2025 3:41 PM EDT Fatigue, unspecified type COMPREHENSIVE METABOLIC PANEL (CMP) Routine 06/23/2025 3:41 PM EDT Essential hypertension Anemia, unspecified type CBC AND DIFFERENTIAL Routine 06/23/2025 3:41 PM EDT Essential hypertension Anemia, unspecified type MRI BRAIN Routine 06/23/2025 3:27 PM EDT Balance disorder Falls frequently from Last 3 Months Results * Outside MR Head/Neck Report Only (07/06/2025 1:43 PM EDT) us Historical Provider MD WARD MR HEAD/NECK Final Re sult * (ABNORMAL) Comprehensive metabolic panel (06/23/2025 3:41 PM EDT) SODIUM 140 133 - 146 mmol/L [facility] POTASSIUM 4.1 3.3 - 5.1 mmol/L [facility] CHLORIDE 104 96 - 108 mmol/L [facility] CO2 28 21 - 35 mmol/L [facility] BUN 22(H) 6 - 19 mg/dL [facility] CREATININE 0.90 0.5 - 1.5 mg/dL [facility] GLUCOSE 93 70 - 99 mg/dL [facility] ALBUMIN 4.7 3.9 - 4.8 g/dL [facility] TOTAL PROTEIN 7.3 6.5 - 8.0 g/dL [facility] CALCIUM 9.5 8.4 - 10.3 mg/dL [facility] ALKALINE PHOSPHATASE 46 39 - 117 U/L [facility] TOTAL BILIRUBIN 0.9 0.0 - 1.2 mg/dL [facility] AST 41(H) 0 - 37 U/L [facility] ALT 20 0 - 40 U/L [facility] GLOBULIN 2.6 1 - 4.8 g/dL [facility] EGFR 84 >59 mL/min/1.7 3m2 [facility] Comment:Estimated glomerular filtration rate calculated using the CKD-EPI refit equation. ANION GAP 12 10 - 20 mmol/L [facility] Blood 06/23/2025 3:41 PM EDT 06/23/2025 3:46 PM EDT Abran Lacey MD LAB BLOOD BKR ORDERABLES [place] Result Performing Organization Address City/[facility]/ZIP Co de Phone Number [address] [address] * TSH with reflex (06/23/2025 3:41 PM EDT) TSH 1.30 0.27 - 4.20 uIU/mL [facility] Blood 06/23/2025 3:41 PM EDT 06/23/2025 3:46 PM EDT Abran Lacey MD LAB BLOOD BKR ORDERABLES [place] Result Performing Organization Address City/[facility]/ZIP Co de Phone Number [address] [address] * (ABNORMAL) Iron and iron binding capacity (06/23/2025 3:41 PM EDT) Pathologist [facility] IRON 165(H) 45 - 160 ug/dL [facility] IRON BINDING CAPACITY 227(L) 228 - 428 ug/dL [facility] TRANSFERRIN SATURAT. 73(H) 20 - 55 % [facility] Blood 06/23/2025 3:41 PM EDT 06/23/2025 3:46 PM EDT Abran Lacey MD LAB BLOOD BKR ORDERABLES [place] Result Performing Organization Address City/[facility]/ZIP Co de Phone Number [address] [address] * Sedimentation rate (ESR) (06/23/2025 3:41 PM EDT) Pathologist [facility] ESR 3 0 - 20 mm/h [facility] Blood 06/23/2025 3:41 PM EDT 06/23/2025 3:46 PM EDT Abran Lacey MD LAB BLOOD BKR ORDERABLES [place] Result Performing Organization Address City/[facility]/ZIP Co de Phone Number [address] [address] * (ABNORMAL) CBC and differential (06/23/2025 3:41 PM EDT) Pathologist [facility] WBC 5.54 4.00 - 11.00 K/uL [facility] RBC 3.29(L) 4.50 - 5.90 M/uL [facility] HGB 11.3(L) 13.5 - 17.5 g/dL [facility] HCT 34.5(L) 41.0 - 53.0 % [facility] PLT 170 150 - 450 K/uL [facility] MCV 104.9(H) 80.0 - 100.0 fL [facility] MCH 34.3(H) 27.0 - 31.0 pg [facility] MCHC 32.8 32.0 - 36.0 g/dL [facility] RDW 13.2 11.5 - 14.5 % [facility] MPV 10.4 8.4 - 12.0 fL [facility] NRBC 0.00 0.00 /100 WBCs [facility] ABSOLUTE NRBC 0.00 0.00 K/uL [facility] DIFF METHOD Auto [facility] NEUTS 55.8 48.0 - 76.0 % [facility] LYMPHS 27.4 18.0 - 41.0 % [facility] MONOS 13.5(H) 4.0 - 11.0 % [facility] EOS 2.2 0.0 - 5.0 % [facility] BASOS 0.7 0.0 - 1.5 % [facility] Granulocytes, immature (%) 0.4 0.0 - 0.9 % [facility] ABSOLUTE NEUTS 3.09 1.92 - 7.60 K/uL [facility] ABSOLUTE LYMPHS 1.52 0.72 - 4.10 K/uL [facility] ABSOLUTE MONOS 0.75 0.16 - 1.10 K/uL [facility] ABSOLUTE EOS 0.12 0.00 - 0.50 K/uL [facility] ABSOLUTE BASOS 0.04 0.00 - 0.15 K/uL [facility] Granulocytes, immature 0.02 0.00 - 0.09 K/uL [facility] Blood 06/23/2025 3:41 PM EDT 06/23/2025 3:46 PM EDT us Abran Lacey MD LAB BLOOD BKR ORDERABLES [place] Result [facility] [address] [place] [address] * C-Reactive Protein (06/23/2025 3:41 PM EDT) C REACTIVE PROTEIN <3.0 0.0 - 4.0 mg/L [facility] Blood 06/23/2025 3:41 PM EDT 06/23/2025 3:46 PM EDT us Abran Lacey MD LAB BLOOD BKR ORDERABLES [place] Result Performing Organization Address City/[facility]/ZIP Co de Phone Number [address] [address] * Free T4 (06/23/2025 3:41 PM EDT) FREE T4 1.1 0.9 - 1.7 ng/dL [facility] Blood 06/23/2025 3:41 PM EDT 06/23/2025 3:46 PM EDT us Abran Lacey MD LAB BLOOD BKR ORDERABLES [place] Result Performing Organization Address [facility] Co de Phone Number [address] [address] * Magnesium (06/23/2025 3:41 PM EDT) MAGNESIUM 2.2 1.6 - 2.6 mg/dL [facility] Blood 06/23/2025 3:41 PM EDT 06/23/2025 3:46 PM EDT us Abran Lacey MD LAB BLOOD BKR ORDERABLES [place] Result Performing Organization Address [facility] Co de Phone Number [address] [address] * Folate (06/23/2025 3:41 PM EDT) FOLIC ACID 13.8 4.2 - 19.9 ng/mL [facility] Blood 06/23/2025 3:41 PM EDT 06/23/2025 3:46 PM EDT us Abran Lacey MD LAB BLOOD BKR ORDERABLES [place] Result Performing Organization Address City/[facility]/ZIP Co de Phone Number [address] [address] * (ABNORMAL) Ferritin (06/23/2025 3:41 PM EDT) FERRITIN 1,027(H) 30 - 400 ug/L [facility] Blood 06/23/2025 3:41 PM EDT 06/23/2025 3:46 PM EDT Abran Lacey MD LAB BLOOD BKR ORDERABLES [place] Result [address] [address] * Vitamin B12 (06/23/2025 3:41 PM EDT) VITAMIN B12 488 232 - 1,245 pg/mL [facility] Blood 06/23/2025 3:41 PM EDT 06/23/2025 3:46 PM EDT Abran Lacey MD LAB BLOOD BKR ORDERABLES [place] Result Performing Organization Address City/[facility]/ZIP Co de Phone Number [address] [address] from Last 3 Months [place] [id number] [facility] MEDICARE SUPPLEMENT MEDICARE PART A & B [facility] MEDICARE SUPPLEMENT MEDICARE PART A & B Member Subscriber Plan / Payer ( fective 2004-Present) Name:Jorje Chopra Member ID:[id number] Relation to Subscriber:Self Name:Jorje ChopraRebeca Subscriber ID:[id number] Payer ID:[id number] Group ID:Not on file Type:Medicare Address: [employer] [address] [place] [phone] [facility] MEDICARE SUPPLEMENT MEDICARE PART A & B Member Subscriber Plan / Payer ( fective 2004-Present) Name:Jorje Chopra Member ID:[id number] Relation to Subscriber:Self Name:Jorje Chopra Subscriber ID:[id number] Payer ID:[id number] Group ID:Not on file Type:Medicare Address: [employer] [address] [place] [phone] [facility] MEDICARE SUPPLEMENT MEDICARE PART A & B [employer] MEDICARE SUPPLEMENT MEDICARE PART A & B [employer] MEDICARE SUPPLEMENT MEDICARE PART A & B [facility] MEDICARE SUPPLEMENT MEDICARE PART A & B [facility] MEDICARE SUPPLEMENT MEDICARE PART A & B [facility] MEDIC[facility] SUPPLEMENT Advance Directives For more information, please contact: [phone] (9AM - 5PM [facility], Saturday-Saturday) Documents on File Type Date Recorded Patient Electric Meter Installer Expl anation Healthcare Proxy 07/21/2021 Healthcare Proxy Care Teams Patient Scheduler Relationship Specialty Start Date End Date Abran Lacey MD [address] [place] [address] [email or web address] PCP - General Internal Medicine 06/30/20 Abran Lacey MD [address] [place] [address] [email or web address] Insurance Assigned Provider 01/25/24 Edgardo Salmeron MD [address] [place] [address] [email or web address] 10/29/19 Raymundo Mtz MD [address] [place] [address] [email or web address] Surgery 08/29/20 Additional Source Comments The information contained in this document represents components of the legal health record. It is not the complete legal health record.[facility]
--- OUTSIDE RECORDS SUMMARY | 2025-09-04 07:18 | XMS_ITS | Data Portability ---
Author Organization [place] - [facility], Allergy Address [address] [place] [phone] Assessment Encounter Date Assessment Date Assessment LastModified by Organization Details LastModified Time 11/02/2024 11/02/2024 Patient's hearing remains reportedly stable and reprogramming is not recommended at this time given the patient's satisfaction with sound quality. The devices were previously programmed using the Audioscan Gamma Medicait hearing aid analyzer and not repeated today as patient continues to report that speech is audible and comfortably loud. Hearing devices were found to be generally free of debris. A listening test revealed that the devices were found to be in working order. The microphones were functioning without any noise or artifact. The sound bores were not occluded at this time. Reviewed with patient the importance of annual appointments to ensure that the devices are working to their best potential and to rule out any changes in hearing or need to reprogram the devices. Urgent visits can always be requested or the patient can also utilize our drop-off repair program. Reviewed waxtrap changes, general cleaning of the entire device, and how to adjust the volume control. Recommend following up in one year for their annual hearing aid fitting, sooner if any problems arise. [email or web address] Not available 11/02/2024 15:26:34 04/21/2025 04/21/2025 Resolution: device(s) repaired in office. Patient to picking supervisor device(s) at their convenience. Not available 04/21/2025 14:47:48 Plan of Treatment Reminders Order Date Submit Date Provider Last Modified By Organization Details Last Modified Time Details Appointments None record ed. Lab None record ed. Referral None record ed. Procedures None record ed. Surgeries None record ed. Imaging None record ed. Medication Orders None record ed. Patient TargetsNo targets recorded. Patient InstructionsNo instructions recorded. Reason for Referral None Reported. Problems Name Problem SNOMED Code Status Onset Date Resolution Date Notes Provider Name and Address Organization Details Recorded Time Sensorine ural hearing loss of bilateral ears 587068433 Active 2020 Sensorine ural hearing loss, bilateral ; Note: Date Diagnosed : 02/13/2021 10:18 AM (H90.3) Not Available [facility] 4 02:38:23 Dysphonia 33378211 Active 2022 Hoarsenes s; Note: Date Diagnosed : 08/29/2023 11:56 AM (R49.0) Not Available [facility] 4 02:38:25 Dysphagia 94327291 Active 2022 Dysphagia , unspecifi ed; Note: Date Diagnosed : 08/29/2023 11:49 AM (R13.10) Not Available [facility] 4 02:38:20 Foreign body in left ear 75520962060 105931 Active 2023 Foreign body in left ear, initial encounter ; Note: Date Diagnosed : 10/22/2023 10:30 AM (T16.2XXA ) Not Available [facility] 4 02:38:20 Problem Notes None recorded. Medical Equipment None Reported. Allergies Allergen ID Allergen Name Allergen Category Reaction Reaction Severity Criticality Documentation Date Start Date Code Code System Note Provider Name and Address Organization Details Recorded Time 35417 tetracycl ine medicatio n other Not available Not available 03/03/2024 07968 RxNorm React ion: Unkno wn; Not Available [facility] 4 01:03:42 14264 amoxicill in medicatio n other Not available Not available 03/03/2024 723 RxNorm React ion: Unkno wn; Not Available [facility] 4 01:03:44 50656 Penicilli n Not available other Not available Not available 03/03/2024 64822 RxNorm React ion: Unkno wn; Not Available [facility] 4 01:03:46 17711 erythromy carl medicatio n other Not available Not available 03/03/2024 4053 RxNorm React ion: Unkno wn; Not Available [facility] 4 01:03:48 Medications Name Sig Start Date Stop Date Status Note LastModified by Organization Details LastModified Time trazodone 50 mg tablet TAKE 1 TABLET BY MOUTH NIGHTLY AT BEDTIME active Not Available Not Available No t Available flaxseed oil 1,000 mg capsule active Medicatio n ID: [id number] Br and Name: flaxseed oil Send Method: E-Prescri bed Subs Allowed: subs OK Medica tionGener icName: flaxseed oil Not Available Not Available Not Available Aspirin Childrens 81 mg chewable tablet active Medicatio n ID: [id number] Br and Name: Aspirin Childrens Send Method: E-Prescri bed Subs Allowed: subs OK Medica tionGener icName: Aspirin Childrens Not Available Not Available Not Available mupirocin 2 % topical ointment APPLY TO SURGICAL SITE TWICE A DAY FOR 14 DAYS DAYS OR UNTIL FULLY HEALED active Not Available Not Available No t Available finasterid e 5 mg tablet TAKE 1 TABLET BY MOUTH EVERY DAY active Not Available Not Available No t Available Vitamin D3 25 mcg (1,000 unit) capsule active Medicatio n ID: [id number] Br and Name: Vitamin D3 Send Method: E-Prescri bed Subs Allowed: subs OK Medica tionGener icName: Vitamin D3 Not Available Not Available Not Available Restasis 0.05 % eye drops in a dropperett e INSTILL 1 DROP INTO BOTH EYES TWICE A DAY active Not Available Not Available No t Available rosuvastat in 10 mg tablet TAKE 1 TABLET BY MOUTH EVERY DAY active Not Available Not Available No t Available metoprolol tartrate 25 mg tablet TAKE 1/2 OF A TABLET (12.5 MG TOTAL) BY MOUTH TWICE A DAY active Not Available Not Available No t Available Systane Ultra 0.4 %-0.3 % eye drops active Medicatio n ID: [id number] Br and Name: Systane Ultra Sen d Method: E-Prescri bed Subs Allowed: subs OK Medica tionGener icName: Systane Ultra Not Available Not Available Not Available Vitals None Recorded Social History None recorded. Functional Status None recorded. Mental Status None recorded. Family History Nothing Reported. Medical History No medical history recorded. Past Encounters Encounter ID Performer Location Encounter Start Date Encounter Closed Date Diagnosis/Indication Diagnosis SNOMED-CT Code Diagnosis ICD10 Code Diagnosis IMO Codes Diagnosis Note [id number] [place] [address] [facility] [place] [address] [facility] [address] 11/02/2024 14:57:30 11/03/2024 08:06:17 Sensorineural hearing loss of bilateral ears [id number] H90.3 [id number] [place] [address] [facility],[place] [address] [place] [address] 04/21/2025 14:46:40 04/26/2025 19:26:40 Sensorineural hearing loss of bilateral ears 819906807 H90.3 Health Concerns Section Related Observation LastModified by Organization Detai ls LastModified Time None Recorded Concern Status LastModified by Organization Details LastModified Time None Recorded Advance Directives Directive None Recorded Payers Insurance Date Sequence Insurance Name Policy Number Policy Oliveira Covered Member ID Oliveira Member ID Guarantor Name 04/21/2025 1 [place] [employer] Jorje Rosanne Nav [id number] Jorje Chopra 04/21/2025 2 [facility] INDEMNITY PLAN (INDEMNITY) [id number] Jorje Rosanne Chopra [id number] Jorje Chopra Notes Date Note Type Note Provider Name and Address Organization Details Recorded Time 11/02/2024 text/html Hearing Technolo gy HistoryReported by PatientReported status of current hearing technologyFor sound quality and programming settings, patient reportsthat they are satisfied with current settings and technology. For daily use, patient reportsconsistent use of technology. For reported condition, patient reportsin working condition. Patient returned for their annual fitting of amplification to discuss their ongoing communication needs and progress with amplification. They reported stable hearing. The devices are out of warranty at this time. Kana G[address]ER [address] [facility] [address], [place], [address], [facility] - [facility] 11/02/2024 15:26:52 04/21/2025 text/html Hearing Technolo gy HistoryReported by PatientReported status of current hearing technologyFor reported condition, patient reportscracked or broken earmold tubing (__)anddead (left). Drop off repair. Kana GRIER [address] [facility] [address], [place], [address], [facility] - [facility] 04/21/2025 14:47:58
--- OUTSIDE RECORDS SUMMARY | 2025-09-04 07:18 | XMS_ITS | Encounter Summary ---
Author Organization [facility] Address [facility] [employer] [address] [address] Phone Care Team Providers Care Projection Technician Name Role Phone Abran Lacey MD Unavailable [phone] Edgardo Salmeron MD Unavailable [phone] Abran Lacey MD Primary Care Provider Raymundo Mtz MD Unavailable [phone] Reason for Visit * Reason Comments Medication Refill Encounter Details Date Type Department Care Team (Late st Contact Info) Description 07/02/2025 Refill [facility] [place] Internal Medicine [address] [place], [place] [id number] Abran Lacey MD [address] [place] [address] [email or web address] Medication Refill Social History Tobacco Use Types Packs/Day Years Used Date Smoking Tobacco: Former Cigarettes 1.5 45 1 955 - 2000 Smokeless Tobacco: Never Alcohol Use [...] Description 02/25/2026 10:30 AM EDT [facility] [place] [facility] [address] [place] [address] Abran Lacey MD [address] [place] [address] [email or web address] documented as of this encounter Visit Diagnoses Not on filedocumented in this encounter Additional Health Concerns Assessment Noted Time PHQ-2 Depression Total Score: 0 02/26/20 25 8:05 AM EDT documented as of this encounter Care Teams Projection Technician Relationship Specialty Start Date End Date Abran Lacey MD [address] [place] [address] [email or web address] PCP - General Internal Medicine 06/30/20 Abran Lacey MD [address] [place] [address] [email or web address] Insurance Assigned Provider 01/25/24 Edgardo Salmeron MD [address] [place] [address] [email or web address] 10/29/19 Raymundo Mtz MD [address] [place] [address] [email or web address] Vascular Surgery 08/29/20 documented as of this encounter Additional Source Comments The information contained in this document represents components of the legal health record. It is not the complete legal health record.[facility]
--- OUTSIDE RECORDS SUMMARY | 2025-09-04 07:18 | XMS_ITS | Encounter Summary ---
Author Organization [facility] Address [facility] [address] [place] [address] Phone Care Team Providers Care Chandelier Maker Name Role Phone Abran Lacey MD Unavailable Edgardo Salmeron MD Unavailable Abran Lacey MD Primary Care Provider [phone] Raymundo Mtz MD Unavailable [phone] Encounter Details Date Type Department Care Team (Late st Contact Info) Description 06/23/2025 Telephone [employer] [facility] Internal Medicine [address] [place], [place] [phone] Abran Lacey MD [address] [place] [address] [email or web address] Social History Tobacco Use Types Packs/Day Years Used Date Smoking Tobacco: Former Cigarettes 1.5 45 1 605 - 2000 Smokeless Tobacco: Never Alcohol Use [...] Description 02/25/2026 10:30 AM EDT Office Visit [facility] Internal Medicine [address] [place] [address] Abran Lacey MD [address] [place] [address] [email or web address] documented as of this encounter Visit Diagnoses Not on filedocumented in this encounter Additional Health Concerns Assessment Noted Time PHQ-2 Depression Total Score: 0 02/26/20 25 8:05 AM EDT documented as of this encounter Care Teams Chandelier Maker Relationship Specialty Start Date End Date Abran Lacey MD [address] [place], [place] PCP - General Internal Medicine 06/30/20 Abran Lacey MD [address] [place] [id number] [email or web address] Insurance Assigned Provider 01/25/24 Edgardo Salmeron MD [address] [place] [address] [email or web address] 10/29/19 Raymundo Mtz MD [address] [place] [address] [email or web address] Vascular Surgery 08/29/20 documented as of this encounter Additional Source Comments The information contained in this document represents components of the legal health record. It is not the complete legal health record.[facility]
--- OUTSIDE RECORDS SUMMARY | 2025-09-04 07:18 | XMS_ITS | Encounter Summary ---
Author Organization [facility] Address [facility] [employer] [address] [address] Phone Care Team Providers Care Correction Officer Reformatory Name Role Phone Abran Lacey MD Unavailable [phone] Edgardo Salmeron MD Unavailable [phone] Abran Lacey MD Primary Care Provider [phone] Raymundo Mtz MD Unavailable [phone] Reason for Visit * Reason Comments Medication Refill Encounter Details Date Type Department Care Team (Late st Contact Info) Description 08/28/2025 Refill [facility] [place] Internal Medicine [address] [place], [place] [phone] Abran Lacey MD [address] [place] [address] [email or web address] Medication Refill Social History Tobacco Use Types [...] as of this encounter Progress Notes * Ida Victoria CMA - 08/30/2025 7:41 AM EST Rx Care Gap Status - Instructions for Clinical Staff (prescriber discretion applies): > Mismatch review guide > At least one request does not meet full criteria. Specifics below. > Labs due: Please remind patient. > Orders needed: Click OPA and Accept to open SmartSet. Lipid panel - Needs order * Visit Info Last visit: 06/23/2025 Abran Lacey MD - Internal Medicine [facility] > Requested f/u: Not specified Upcoming visit: 08/30/2025 Abran Lacey MD - Internal Medicine [facility] ACTIONS TAKEN BY Ida Victoria CMA - Updated rx duration per protocol. Cholesterol Medication Rx Protocol - rosuvastatin calcium Criteria not met; renew for up to 3 months. (unless patient is on high intensity statin, in which case LDL level may not be needed at provider discretion) Visit in the past 14 months: Yes Clinical criteria: - Lipid panel within past year: No Lab Results Component Value Date LDL - External 48 (*) 03/04/2024 HDL - External 47 03/04/2024 Cholesterol, total - External 102 03/04/2024 No Health Maintenance Labs Overdue documented in this encounter Plan of Treatment Upcoming Encounters Date Type Department Care Team (Late st Contact Info) Description 02/25/2026 10:30 AM EDT Office Visit [facility] Internal Medicine [address] [place] [address] Abran Lacey MD [address] [place] [address] [email or web address] documented as of this encounter Visit Diagnoses Diagnosis Pure hypercholesterolemia documented in this encounter Additional Health Concerns Assessment Noted Time PHQ-2 Depression Total Score: 0 02/26/20 25 8:05 AM EDT documented as of this encounter Care Teams Correction Officer Reformatory Relationship Specialty Start Date End Date Abran Lacey MD [address] [place] [address] [email or web address] PCP - General Internal Medicine 06/30/20 Abran Lacey MD [address] [place] [address] [email or web address] Insurance Assigned Provider 01/25/24 Edgardo Salmeron MD [address] [place] [id number] [email or web address] 10/29/19 Raymundo Mtz MD [address] [place] [address] [email or web address] Vascular Surgery 08/29/20 documented as of this encounter Additional Source Comments The information contained in this document represents components of the legal health record. It is not the complete legal health record.[facility]
--- OUTSIDE RECORDS SUMMARY | 2025-09-04 07:18 | XMS_ITS | Patient Health Record ---
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 Problem Tinea pedis (3385872) Tinea Pedis (110.4) Active confirmed Plan Of Treatment No Information Insurance Providers Payer Name Payer Address Payer Phone Subscriber Number Group Number Insured Name Patient Relationship to Insured Coverage Start Date Coverage End Date Medicare [facility] [address] [place] [address] [id number] Jorje Espinoza Self - patient is the insured [employer]) [address] [place], [place] [address] [id number] Jorje Espinoza Self - patient is the insured Medical (General) History Medical History History ICD Code Arthritis Measles Mumps Chicken pox Joint implants/screws Surgical History Surgery Date(Month/Year) 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
[2025-09-04 07:27] LABS: MANUAL DIFF FLAG NO
[2025-09-04 07:40] LABS: Hematocrit 32.8 % (42.0-52.0); Hemoglobin 11.0 g/dl (14.0-18.0); Imm Gran Abs Auto 0.00 X10*3/uL (0.00-0.03); Imm Gran Pct Auto 0.0 % (0.0-0.4); Lymphocytes Absolute Auto 1.7 X10*3/uL (1.2-4.9); Mean Corpuscular HGB Conc 33.5 g/dl (31.0-36.0); Mean Corpuscular Hemoglobin 34.0 pg (27.0-33.0); Mean Corpuscular Volume 101.2 fL (80.0-98.0); NRBC Abs Auto 0.000 X10*3/uL (0.0-0.012); NRBC Pct Auto 0.0 /100WBC (0.0-0.2); Platelet Count 168 X10*3/uL (160-400); Red Blood Count 3.24 X10*6/uL (4.60-5.80); White Blood Count 5.0 X10*3/uL (4.8-10.8)
[2025-09-04 07:51] LABS: INTERNATIONAL NORM RATIO 1.1 (0.9-1.1); Prothrombin Time 13.5 SEC (11.2-13.5)
[2025-09-04 08:09] LABS: Alanine Aminotransferase 30 U/L (0-40); Albumin Level 4.5 g/dL (3.5-5.0); Alkaline Phosphatase 37 U/L (39-117); Anion Gap 9 (12-20); Aspartate Amino Transferase 49 U/L (5-37); Blood Urea Nitrogen 27 mg/dL (9-16); Calcium 9.5 mg/dL (8.4-10.2); Carbon Dioxide 28 mmol/L (22-29); Chloride 109 mmol/L (96-108); Cholesterol 110 mg/dL (<200); Estimated Glomerular Filt Rate > 60; HDL Cholesterol 51 mg/dL (>40); Iron 157 mcg/dL (45-160); Percent Iron Saturation 73 % (15-50); Potassium 4.2 mmol/L (3.3-5.1); Sodium 142 mmol/L (135-145); Total Iron Binding Capacity 214 mcg/dL (228-428); Total Protein 6.7 g/dL (6.5-8.0); Triglycerides 48 mg/dL (<150); Unsaturated Iron Binding 57 ug/dL
[2025-09-04 08:26] LABS: Ferritin 1174 ng/mL (20-250)
== END 2025-09-04 07:15 | disposition home or self-care (01) ==
LOC: HO.LAB 07:14
PROVIDERS: PCP Internal Medicine; Visit Provider Internal Medicine
DX: I10 Essential (primary) hypertension (principal); T14.8XXA Other injury of unspecified body region, initial encounter; D64.9 Anemia, unspecified; R73.01 Impaired fasting glucose
CPT/HCPCS: 36415; 80053; 80061; 82728; 83036; 83540; 85025; 85610